=== PATIENT | female | born 1980 | race Caucasian/White ===

== ENCOUNTER 2017-10-06 17:54 | Inpatient (IN) | payer MEDICARE, OTHER ==
[2017-10-06 18:55] LABS: ADD MAN DIFF? NO
[2017-10-06] MEDS: IV NORMAL SALINE 1000ML BAG 1,000 ML IV ×2 (18:56→22:44)
[2017-10-06 19:00] LABS: BASO # 0.1 x10^3/uL (0.0-0.2); BASO % 1 % (0-3); EOS # 0.2 x10^3/uL (0.0-0.7); EOS % 1 % (0-3); HEMATOCRIT 41.2 % (36.0-47.0); HEMOGLOBIN 13.2 g/dL (12.0-15.5); LYMPH # 4.3 x10^3/uL (1.0-4.8); LYMPH % 30 % (24-48); MEAN CORPUSCULAR HEMOGLOBIN 26 pg (25-35); MEAN CORPUSCULAR HGB CONC 32 g/dL (31-37); MEAN CORPUSCULAR VOLUME 80 fL (79-100); MONO # 0.6 x10^3/uL (0.0-1.1); MONO % 4 % (0-9); NEUT # 9.2 x10^3uL (1.8-7.7); NEUT % 64 % (31-73); PLATELET COUNT 371 x10^3/uL (140-400); RED BLOOD COUNT 5.13 x10^6/uL (3.50-5.40); RED CELL DISTRIBUTION WIDTH 15.8 % (11.5-14.5); WHITE BLOOD COUNT 14.4 x10^3/uL (4.0-11.0)
[2017-10-06 19:13] LABS: NEG OBC SER NEG; POS OBC SER POS; PREG TEST PT QUAL NEGATIVE (NEG)
[2017-10-06 19:14] LABS: ANION GAP 8 (6-14); BLOOD UREA NITROGEN 10 mg/dL (7-20); BUN/CREATININE RATIO 10 (6-20); CALCIUM 8.4 mg/dL (8.5-10.1); CARBON DIOXIDE 30 mmol/L (21-32); CHLORIDE 102 mmol/L (98-107); GFR 62.1; GLUCOSE 104 mg/dL (70-99); POTASSIUM 3.1 mmol/L (3.5-5.1); SODIUM 140 mmol/L (136-145)
[2017-10-06 19:18] LABS: ALBUMIN 3.3 g/dL (3.4-5.0); ALBUMIN/GLOBULIN RATIO 0.8 (1.0-1.7); ALK PHOS 112 U/L (46-116); ALT (SGPT) 21 U/L (14-59); AST (SGOT) 14 U/L (15-37); TOTAL BILIRUBIN 0.1 mg/dL (0.2-1.0); TOTAL PROTEIN 7.5 g/dL (6.4-8.2)
[2017-10-06 19:26] LABS: C-REACTIVE PROTEIN 9.1 mg/L (0-3.3)
[2017-10-06] MEDS ORDERED: fentaNYL PF VIAL 100 MCG/2 ML VIAL IV (19:45)
[2017-10-06] MEDS: IOHEXOL 300 MG/ML 100ML VIAL. IV (20:00)
[2017-10-06 20:21] LABS: BILIRUBIN,URINE NEGATIVE (NEG); COLOR,URINE YELLOW; GLUCOSE,URINE NEGATIVE (NEG); NITRITE,URINE NEGATIVE (NEG); PROTEIN,URINE NEGATIVE (NEG-TRACE); UROBILINOGEN,URINE 0.2 mg/dL (0.2 mg/dL)
[2017-10-06 20:27] LABS: CLARITY,URINE HAZY
[2017-10-06 20:30] LABS: BACTERIA,URINE MANY /HPF (0-FEW); RBC,URINE 0 /HPF (0-2); SQUAMOUS EPITHELIAL CELL,UR MANY /LPF; WBC,URINE OCC /HPF (0-4)
[2017-10-06] MEDS ORDERED: ONDANSETRON PF 4 MG/2 ML VIAL. IV (21:00)
[2017-10-06] MEDS ORDERED: MORPHINE SULFATE 2 MG/ML DISP.SYRIN. IV (21:00)
[2017-10-07 04:25] LABS: ADD MAN DIFF? NO
[2017-10-07 04:31] LABS: BASO # 0.1 x10^3/uL (0.0-0.2); BASO % 1 % (0-3); EOS # 0.2 x10^3/uL (0.0-0.7); EOS % 1 % (0-3); HEMATOCRIT 36.6 % (36.0-47.0); LYMPH # 4.2 x10^3/uL (1.0-4.8); LYMPH % 34 % (24-48); MEAN CORPUSCULAR HEMOGLOBIN 26 pg (25-35); MEAN CORPUSCULAR HGB CONC 33 g/dL (31-37); MEAN CORPUSCULAR VOLUME 80 fL (79-100); MONO # 0.8 x10^3/uL (0.0-1.1); MONO % 7 % (0-9); NEUT # 7.2 x10^3uL (1.8-7.7); NEUT % 57 % (31-73); PLATELET COUNT 293 x10^3/uL (140-400); RED CELL DISTRIBUTION WIDTH 15.7 % (11.5-14.5); WHITE BLOOD COUNT 12.5 x10^3/uL (4.0-11.0)
[2017-10-07 04:50] LABS: ANION GAP 6 (6-14); BLOOD UREA NITROGEN 9 mg/dL (7-20); CALCIUM 8.1 mg/dL (8.5-10.1); CARBON DIOXIDE 27 mmol/L (21-32); CHLORIDE 106 mmol/L (98-107); CREATININE 0.8 mg/dL (0.6-1.0); GFR 80.3; GLUCOSE 88 mg/dL (70-99); POTASSIUM 3.7 mmol/L (3.5-5.1); SODIUM 139 mmol/L (136-145)
[2017-10-07] MEDS: IV NORMAL SALINE 1000ML BAG 1,000 ML IV (05:04)
[2017-10-07] MEDS ORDERED: MORPHINE SULFATE 4 MG/ML DISP.SYRIN. IV (11:51)
[2017-10-07] MEDS ORDERED: IBUPROFEN 600 MG TABLET. PO (12:00)
[2017-10-07] MEDS: IV 1/2 NORMAL SALINE 1,000 ML IV ×2 (12:06→21:04)
[2017-10-07] MEDS: METOPROLOL SUCC 24HR ER 25 MG TAB.ER.24H. PO (12:30)
[2017-10-07] MEDS: PANTOPRAZOLE 40 MG TABLET.DR. PO (14:13)
[2017-10-07] MEDS: HYDROcodone/APAP 7.5/325MG 1 TAB TABLET PO ×2 (14:15→21:05)
[2017-10-07] MEDS: hydroCHLOROthiazide 25 MG TABLET PO (16:34)
[2017-10-07] MEDS: ATENOLOL 25 MG TABLET. PO (18:44)
[2017-10-07] MEDS: LACTOBACILLUS RHAMNOSUS GG 1 CAPSULE. PO (21:05)
[2017-10-08] MEDS: HYDROcodone/APAP 7.5/325MG 1 TAB TABLET PO (04:42)
[2017-10-08 04:55] LABS: ADD MAN DIFF? NO
[2017-10-08 05:02] LABS: BASO # 0.1 x10^3/uL (0.0-0.2); BASO % 1 % (0-3); EOS # 0.2 x10^3/uL (0.0-0.7); EOS % 2 % (0-3); HEMATOCRIT 36.1 % (36.0-47.0); HEMOGLOBIN 11.9 g/dL (12.0-15.5); LYMPH % 36 % (24-48); MEAN CORPUSCULAR HEMOGLOBIN 27 pg (25-35); MEAN CORPUSCULAR HGB CONC 33 g/dL (31-37); MEAN CORPUSCULAR VOLUME 81 fL (79-100); MONO # 0.7 x10^3/uL (0.0-1.1); MONO % 6 % (0-9); NEUT # 6.1 x10^3uL (1.8-7.7); NEUT % 55 % (31-73); PLATELET COUNT 295 x10^3/uL (140-400); RED BLOOD COUNT 4.47 x10^6/uL (3.50-5.40); RED CELL DISTRIBUTION WIDTH 15.7 % (11.5-14.5)
[2017-10-08 05:35] LABS: ANION GAP 6 (6-14); BLOOD UREA NITROGEN 7 mg/dL (7-20); CALCIUM 7.7 mg/dL (8.5-10.1); CARBON DIOXIDE 27 mmol/L (21-32); CHLORIDE 107 mmol/L (98-107); CREATININE 0.8 mg/dL (0.6-1.0); GFR 80.3; GLUCOSE 92 mg/dL (70-99); POTASSIUM 3.9 mmol/L (3.5-5.1); SODIUM 140 mmol/L (136-145)
[2017-10-08] MEDS ORDERED: DEXTROAMPHETAMINE PO (08:00)
[2017-10-08] MEDS ORDERED: AMPHETAMINE PO (08:00)
[2017-10-08] MEDS: IV 1/2 NORMAL SALINE 1,000 ML IV (08:30)
[2017-10-08] MEDS: PANTOPRAZOLE 40 MG TABLET.DR. PO (09:34)
[2017-10-08] MEDS: LACTOBACILLUS RHAMNOSUS GG 1 CAPSULE. PO (09:34)
== END 2017-10-08 12:50 | disposition home or self-care (01) | DRG 690 ==
LOC: ER 17:54 → 5 NORTH 21:00
DX: N10 Acute pyelonephritis (principal); F12.90 Cannabis use, unspecified, uncomplicated; F17.200 Nicotine dependence, unspecified, uncomplicated; F41.1 Generalized anxiety disorder; I10 Essential (primary) hypertension; J45.909 Unspecified asthma, uncomplicated; K21.9 Gastro-esophageal reflux disease without esophagitis; Z90.710 Acquired absence of both cervix and uterus; Z98.51 Tubal ligation status; Z87.440 Personal history of urinary (tract) infections; Z88.4 Allergy status to anesthetic agent; Z88.1 Allergy status to other antibiotic agents; Z88.0 Allergy status to penicillin; Z88.2 Allergy status to sulfonamides; Z88.8 Allergy status to other drugs, medicaments and biological substances
CPT/HCPCS: 36415; 74178; 80048; 80053; 81001; 84703; 85025; 86140; 87086; 96361; 96365; 99285; 99285-25; 99406; J1956; J7030; Q9967

== ENCOUNTER 2017-10-14 00:52 | Emergency (ER) | payer MEDICARE, OTHER ==
[2017-10-14 03:12] LABS: ADD MAN DIFF? NO
[2017-10-14 03:16] LABS: BASO # 0.2 x10^3/uL (0.0-0.2); BASO % 1 % (0-3); EOS # 0.2 x10^3/uL (0.0-0.7); EOS % 1 % (0-3); HEMATOCRIT 37.7 % (36.0-47.0); HEMOGLOBIN 12.3 g/dL (12.0-15.5); LYMPH # 4.9 x10^3/uL (1.0-4.8); LYMPH % 32 % (24-48); MEAN CORPUSCULAR HEMOGLOBIN 26 pg (25-35); MEAN CORPUSCULAR HGB CONC 33 g/dL (31-37); MEAN CORPUSCULAR VOLUME 81 fL (79-100); MONO # 0.8 x10^3/uL (0.0-1.1); MONO % 5 % (0-9); NEUT # 9.3 x10^3uL (1.8-7.7); NEUT % 61 % (31-73); PLATELET COUNT 307 x10^3/uL (140-400); RED BLOOD COUNT 4.67 x10^6/uL (3.50-5.40); RED CELL DISTRIBUTION WIDTH 16.1 % (11.5-14.5); WHITE BLOOD COUNT 15.3 x10^3/uL (4.0-11.0)
[2017-10-14] MEDS: IV NORMAL SALINE 1000ML BAG 1,000 ML IV (03:24)
[2017-10-14] MEDS: ONDANSETRON PF 4 MG/2 ML VIAL. IV (03:24)
[2017-10-14 03:25] LABS: ANION GAP 9 (6-14); BLOOD UREA NITROGEN 12 mg/dL (7-20); BUN/CREATININE RATIO 17 (6-20); CALCIUM 8.3 mg/dL (8.5-10.1); CARBON DIOXIDE 27 mmol/L (21-32); CHLORIDE 103 mmol/L (98-107); CREATININE 0.7 mg/dL (0.6-1.0); GFR 93.6; GLUCOSE 90 mg/dL (70-99); POTASSIUM 3.9 mmol/L (3.5-5.1); SODIUM 139 mmol/L (136-145)
[2017-10-14] MEDS: fentaNYL PF VIAL 100 MCG/2 ML VIAL IV (03:25)
[2017-10-14] MEDS: FAMOTIDINE 20 MG/2 ML VIAL IVP (03:25)
[2017-10-14 03:30] LABS: ALBUMIN 3.3 g/dL (3.4-5.0); ALBUMIN/GLOBULIN RATIO 0.8 (1.0-1.7); ALK PHOS 93 U/L (46-116); ALT (SGPT) 20 U/L (14-59); AST (SGOT) 15 U/L (15-37); LIPASE 146 U/L (73-393); TOTAL BILIRUBIN 0.2 mg/dL (0.2-1.0); TOTAL PROTEIN 7.2 g/dL (6.4-8.2)
[2017-10-14 04:48] LABS: BILIRUBIN,URINE NEGATIVE (NEG); CLARITY,URINE CLEAR; COLOR,URINE YELLOW; GLUCOSE,URINE NEGATIVE (NEG); NITRITE,URINE NEGATIVE (NEG); PH,URINE 5.5; PROTEIN,URINE NEGATIVE (NEG-TRACE); UROBILINOGEN,URINE 0.2 mg/dL (0.2 mg/dL)
[2017-10-14 05:04] LABS: BACTERIA,URINE 0 /HPF (0-FEW); RBC,URINE 0 /HPF (0-2); SQUAMOUS EPITHELIAL CELL,UR FEW /LPF; WBC,URINE OCC /HPF (0-4)
[2017-10-14] MEDS: metroNIDAZOLE 500 MG TABLET PO (05:48)
== END 2017-10-14 06:02 | disposition home or self-care (01) ==
LOC: ER 00:52
DX: E86.0 Dehydration (principal); Z98.51 Tubal ligation status; Z90.710 Acquired absence of both cervix and uterus; F12.10 Cannabis abuse, uncomplicated; Z88.0 Allergy status to penicillin; Z88.1 Allergy status to other antibiotic agents; Z88.5 Allergy status to narcotic agent
CPT/HCPCS: 36415; 80053; 81001; 83690; 85025; 96361; 96374; 96375; 99284-25; J2405; J3010; J7030; S0028

== ENCOUNTER 2018-05-26 07:32 | Observation (INO) | payer MEDICARE, OTHER ==
[2018-05-26] VITALS (7 sets, daily range): BP systolic 106–116; BP diastolic 54–63
[~2018-05-26] VITALS: Ht 170.2 cm; Wt 104.3 kg
[~2018-05-26 07:32] MED LIST: ALPR1TAB2 PO; ALPR2TAB2 PO; ATEN25TA PO; DEXT10CA10 PO; FLUC150T PO; HYDR-971 PO; HYDR12.58 PO; IV RINGERS,LACTATED 1000ML 1,000 ML IV SCH; LIDOCAINE 1% PF 2 ML VIAL. ID PRN; METR500T PO; MORPHINE SULFATE 2 MG/ML VIAL. IV PRN; ONDA4TAB10 SL; OXYC-323 PO; POTA10TA12 PO; PROCHLORPERAZINE 10 MG/2 ML VIAL. IV PRN; VENTOLIN HFA18 GM INH; fentaNYL PF VIAL 100 MCG/2 ML VIAL IV PRN
[2018-05-26] MEDS ORDERED: METHYLENE BLUE 1% 10 ML VIAL. ONE (07:46)
[2018-05-26] MEDS ORDERED: BUPIVAC MPF-EPI 0.5%-1:200000 30 ML VIAL. ONE (07:46)
[2018-05-26] MEDS ORDERED: BUPIVACAINE MPF 0.25% 30 ML VIAL. ONE (07:47)
[2018-05-26] MEDS ORDERED: LIDOCAINE 1%/EPI 1:100,000 20 ML VIAL. ONE (07:47)
[2018-05-26] MEDS ORDERED: ESTROGENS, CONJ VAGINAL CREAM 30GM TUBE. ONE (07:47)
[2018-05-26] MEDS ORDERED: SURGICEL HEMOSTAT 4X8 EACH. ONE (07:47)
[2018-05-26] MEDS ORDERED: CLINDAMYCIN 900MG PREMIX 50 ML IV PRN (08:00)
[2018-05-26] MEDS ORDERED: DEXL60CA2 PO (08:20)
[2018-05-26] MEDS ORDERED: PROAIR HFA8.5 GM INH (08:21)
[2018-05-26 08:23] LABS: BASO # 0.1 x10^3/uL (0.0-0.2); BASO % 1 % (0-3); EOS # 0.2 x10^3/uL (0.0-0.7); EOS % 2 % (0-3); HEMATOCRIT 39.3 % (36.0-47.0); LYMPH # 3.2 x10^3/uL (1.0-4.8); LYMPH % 28 % (24-48); MEAN CORPUSCULAR HEMOGLOBIN 26 pg (25-35); MEAN CORPUSCULAR HGB CONC 33 g/dL (31-37); MEAN CORPUSCULAR VOLUME 79 fL (79-100); MONO # 0.7 x10^3/uL (0.0-1.1); MONO % 6 % (0-9); NEUT # 7.3 x10^3uL (1.8-7.7); NEUT % 63 % (31-73); PLATELET COUNT 309 x10^3/uL (140-400); RED BLOOD COUNT 4.99 x10^6/uL (3.50-5.40); RED CELL DISTRIBUTION WIDTH 16.2 % (11.5-14.5); WHITE BLOOD COUNT 11.6 x10^3/uL (4.0-11.0)
[2018-05-26 08:25] LABS: CALCIUM 8.8 mg/dL (8.5-10.1); CREATININE 0.9 mg/dL (0.6-1.0); GFR 69.7; POTASSIUM 3.2 mmol/L (3.5-5.1)
[2018-05-26] MEDS ORDERED: ROCURONIUM 50 MG/5 ML VIAL. ONE (08:35)
[2018-05-26] MEDS ORDERED: fentaNYL PF VIAL 100 MCG/2 ML VIAL ONE ×2 (08:35→10:32)
[2018-05-26] MEDS ORDERED: MIDAZOLAM HCL/PF 2 MG/2 ML VIAL. ONE (08:35)
[2018-05-26] MEDS ORDERED: SCOPOLAMINE 1.5MG PATCH. TD ONE ×2 (08:50→09:00)
[2018-05-26] MEDS ORDERED: BUPIVACAINE-EPI 0.25%-1:200000 MPF 30 ML VIAL. INJ ONE (09:00)
[2018-05-26] MEDS ORDERED: PROPOFOL 20 ML IV ONE (09:06)
[2018-05-26] MEDS ORDERED: FAMOTIDINE 20 MG/2 ML VIAL ONE (09:06)
[2018-05-26] MEDS ORDERED: ONDANSETRON PF 4 MG/2 ML VIAL. ONE (09:06)
[2018-05-26] MEDS ORDERED: DEXAMETHASONE SOD PHOS 20 MG/5 ML VIAL. ONE (09:06)
[2018-05-26 09:33] LABS: U PREG PATIENT NEGATIVE (NEG)
[2018-05-26] MEDS ORDERED: NEOSTIGMINE METHYLSULFATE 5 MG/5 ML SYRINGE. ONE (10:28)
[2018-05-26] MEDS ORDERED: GLYCOPYRROLATE 1 MG/5 ML VIAL. ONE (10:28)
[2018-05-26] MEDS ORDERED: SEVOFLURANE > 120 MINUTES. IH ONE (10:52)
[2018-05-26] MEDS ORDERED: ONDANSETRON PF 4 MG/2 ML VIAL. IV PRN (11:45)
[2018-05-26] MEDS ORDERED: 0.9 % SODIUM CHLORIDE 10 ML DISP.SYRIN. IV PRN (11:45)
[2018-05-26] MEDS ORDERED: KETOROLAC 30 MG/ML VIAL. IV PRN (11:45)
[2018-05-26] MEDS ORDERED: PROCHLORPERAZINE 10 MG/2 ML VIAL. IV PRN (11:45)
[2018-05-26] MEDS ORDERED: SIMETHICONE 80 MG TAB.CHEW PO PRN (11:45)
[2018-05-26] MEDS ORDERED: CALCIUM CARBONATE 500 MG TAB.CHEW PO PRN (11:45)
[2018-05-26] MEDS ORDERED: ZOLPIDEM 5 MG TABLET. PO PRN (11:45)
[2018-05-26] MEDS ORDERED: DEXTROSE 50% 25 GM / 50ML DISP.SYRIN. IV PRN (11:45)
[2018-05-26] MEDS ORDERED: diphenhydrAMINE HCL 25 MG CAPSULE PO PRN (11:45)
--- NOTE | 2018-05-26 11:45 | PDOC ---
BRIEF OPERATIVE NOTE Date: May 26, 2018 Pre-Op Diagnosis 1. Menorrhagia 2. PMDD Post-Op Diagnosis Same + Cystotomy Procedure Performed 1. LAVH 2. Cystotomy Repair Surgeon Dr. Gibbs Anesthesia Type: General Blood Loss 300 ml Specimens Obtained cervix and uterus Findings enlarged uterus, nml Left fallopian tube and ovary Complications cystotomy Operative Note see dictation AMBERLY GIBBS Jr, MD May 26, 2018 11:45
[2018-05-26] MEDS: fentaNYL PF VIAL 100 MCG/2 ML VIAL IV PRN ×2 (12:04→12:40)
--- NOTE | 2018-05-26 12:17 | OP ---
DATE OF SURGERY: 05/26/2018 PREOPERATIVE DIAGNOSES: 1. Menorrhagia. 2. Premenstrual dysphoric disorder. POSTOPERATIVE DIAGNOSES: 1. Menorrhagia. 2. Premenstrual dysphoric disorder. 3. Cystotomy. PROCEDURE: 1. LAVH. 2. Cystotomy repair. SURGEON: Amberly Gibbs MD ANESTHESIA: GETA. ESTIMATED BLOOD LOSS: 300 mL. COMPLICATIONS: Cystotomy. FINDINGS: Enlarged uterus, normal left fallopian tube and normal left ovary. SUMMARY: A 38-year-old female who was counseled on risks, benefits and expectations of LAVH and voiced clear understanding to proceed. DESCRIPTION OF PROCEDURE: The patient was taken to surgery suite and prepped in normal fashion and draped in sterile fashion. After adequate anesthesia, Graves speculum was placed. Anterior lip of the cervix was grasped with single tooth tenaculum. The Valtchev uterine manipulator was then placed. The bivalve speculum was then removed. Attention was now placed on abdomen. A small transverse skin incision made just below the umbilicus with the scalpel. The Veress needle was then placed through the infraumbilical incision site. The abdomen was allowed to insufflate up to 1-1/2 liters CO2 gas. The Veress needle was then removed. A 5 mm trocar was placed. The camera was placed and positioned. The uterus was enlarged and the left fallopian tube and ovary appeared normal. Right fallopian tube and ovary had been removed in previous surgery. There was no evidence of endometriosis. There were some adhesions of the lower uterine segment to the bladder area. Two additional incisions made in the left lower quadrant in which 5 mm trocars were placed. With the aid of nonlocking graspers and EnSeal device, the right round ligament was coagulated and dissected. The right broad ligament was coagulated and dissected down to the uterine artery. The same process took place with left adnexa. Bladder flap was partially created using dissection with the EnSeal device as well as with blunt dissection and hydrodissection. We then proceeded vaginally. A weighted speculum and curved [place] placed vaginally. The Valtchev uterine manipulator and single tooth tenaculum were removed. Mustapha clamps were placed on the anterior and posterior lip of the cervix. Cervix was injected with 1% lidocaine with epinephrine in circumferential manner. Bovie cautery was utilized to circumscribe the cervix. The vaginal mucosa was dissected away from the lower uterine segment using a moist Ray-Magdaleno. Parametrial tissue was clamped bilaterally with curved Kadi clamps, cut and suture ligated with 2-0 Vicryl suture. The posterior cul-de-sac was then entered sharply using curved Castellanos scissors. The long weighted speculum was placed. Uterosacral ligaments were clamped bilaterally, cut, and suture ligated. The cardinal ligaments were clamped bilaterally, cut, and suture ligated. We entered the anterior cul-de-sac with blunt dissection. The uterus was then retroverted. Two additional pedicles were taken just adjacent to the uterus, clamped, cut and suture ligated. The cervix was also debulked using the coring method using the scalpel. Once the uterus and cervix were removed, the pedicles were visualized. There was a [id number] suture placed in the right aspect of the vaginal cuff near the uterosacral ligament for better hemostasis. At the time of review near the bladder area, it was notified that the bladder did have blood in the catheter, which the Scott catheter bag was removed and methylene blue was mixed with normal saline was injected in a retrograde fashion showing the bladder, which there was a cystotomy defect in the bladder. This cystotomy was repaired with 3-0 chromic suture in 2 layers in a running fashion. Retrograde filling of the bladder was performed, which indicated a good repair, cystoscopy was then performed. The cystoscope was placed, 30-degree scope in which the bladder was evaluated. There was no evidence of suture into the bladder. The ureterovesical junctions were functioning bilaterally. This was visualized. There was no further defect. The cystoscope was removed. A Scott catheter was placed. The urine was then clear at this time. The vaginal cuff was then reapproximated using a modified Ya's culdoplasty incorporating the uterosacral ligaments bilaterally and the remainder of the vaginal cuff was reapproximated using 2-0 Vicryl suture in [id number]-hj-[id number] manner. Moist vaginal packing was placed. The abdomen was once again insufflated with 1.5 liters CO2 gas. The scope was positioned. The vaginal cuff was visualized and hemostatic. Pedicles were all hemostatic. Suction irrigation was utilized to verify good hemostasis. Small amount of normal saline was left in posterior cul-de-sac. The trocars were then removed under direct visualization. The abdomen was allowed to deflate as much as possible. The three skin incisions were reapproximated using 4-0 Vicryl suture in subcuticular manner. A 0.25% Marcaine with epinephrine was injected at each incision site. The patient tolerated the procedure well and was taken to recovery room in stable condition. Sponge and needle count correct x 3. AMBERLY GIBBS MD DR: FRANCA/wei JOB#: [id number] / [id number]
[2018-05-26] MEDS ORDERED: GABAPENTIN 300 MG CAPSULE. PO SCH (22:00)
[2018-05-26] MEDS: oxyCODONE/APAP 5/325 1 TAB TABLET PO PRN (22:56)
[2018-05-27 05:20] LABS: BASO % 0 % (0-3); EOS % 0 % (0-3); HEMATOCRIT 34.8 % (36.0-47.0); HEMOGLOBIN 11.5 g/dL (12.0-15.5); LYMPH # 2.2 x10^3/uL (1.0-4.8); LYMPH % 13 % (24-48); MEAN CORPUSCULAR HEMOGLOBIN 26 pg (25-35); MEAN CORPUSCULAR HGB CONC 33 g/dL (31-37); MEAN CORPUSCULAR VOLUME 80 fL (79-100); MONO # 0.8 x10^3/uL (0.0-1.1); MONO % 5 % (0-9); NEUT # 14.2 x10^3uL (1.8-7.7); NEUT % 82 % (31-73); PLATELET COUNT 283 x10^3/uL (140-400); RED BLOOD COUNT 4.37 x10^6/uL (3.50-5.40); RED CELL DISTRIBUTION WIDTH 16.3 % (11.5-14.5); WHITE BLOOD COUNT 17.2 x10^3/uL (4.0-11.0)
[2018-05-27 06:10] VITALS: BP 105/63
[2018-05-27] MEDS: oxyCODONE/APAP 5/325 1 TAB TABLET PO PRN ×2 (06:15→13:07)
[2018-05-27] MEDS ORDERED: IBUPROFEN 400 MG TABLET. PO PRN (08:30)
[2018-05-27] MEDS: DOCUSATE SODIUM 100 MG CAPSULE. PO PRN ×2 (08:45→13:06)
[2018-05-27 08:52] LABS: % LYMPHS 14 % (24-48); % MONOS 4 % (0-10); % SEGS 82 % (35-66); PLT ESTIMATE ADEQUATE (ADEQUATE)
--- NOTE | 2018-05-27 12:29 | PDOC ---
SURGICAL PROGRESS NOTE Subjective Pt. feeling well. Pain controlled. Vital Signs Vital Signs Date Time Temp Pulse Resp B/P (MAP) Pulse Ox O2 Delivery O2 Flow Rate FiO2 05/27/18 06:15 96 Room Air 05/27/18 06:10 98.3 76 105/63 (77) 98.3 05/26/18 23:00 10.0 05/26/18 22:56 18 I&O Intake and Output 05/27/18 07:00 Intake Total 2950 ml Output Total 1505 ml Balance 1445 ml Intake Oral 800 ml IV Total 2150 ml Output Urine Total 1205 ml Estimated Blood Loss 300 ml PATIENT HAS A OROSCO: Yes General: Alert, Oriented X3, Cooperative HEENT: Atraumatic Lungs: Clear to auscultation Heart: Regular rate Abdomen: Normal bowel sounds, Soft, No tenderness, No masses Extremities: Normal pulses Neuro: Normal gait Psych/Mental Status: Mental status NL Labs Laboratory Tests Test 05/26/18 07:58 05/26/18 08:50 05/27/18 03:45 White Blood Count 11.6 x10^3/uL (4.0-11.0) 17.2 x10^3/uL (4.0-11.0) Red Blood Count 4.99 x10^6/uL (3.50-5.40) 4.37 x10^6/uL (3.50-5.40) Hemoglobin 13.0 g/dL (12.0-15.5) 11.5 g/dL (12.0-15.5) Hematocrit 39.3 % (36.0-47.0) 34.8 % (36.0-47.0) Mean Corpuscular Volume 79 fL (79-100) 80 fL (79-100) Mean Corpuscular Hemoglobin 26 pg (25-35) 26 pg (25-35) Mean Corpuscular Hemoglobin Concent 33 g/dL (31-37) 33 g/dL (31-37) Red Cell Distribution Width 16.2 % (11.5-14.5) 16.3 % (11.5-14.5) Platelet Count 309 x10^3/uL (140-400) 283 x10^3/uL (140-400) Neutrophils (%) (Auto) 63 % (31-73) 82 % (31-73) Lymphocytes (%) (Auto) 28 % (24-48) 13 % (24-48) Monocytes (%) (Auto) 6 % (0-9) 5 % (0-9) Eosinophils (%) (Auto) 2 % (0-3) 0 % (0-3) Basophils (%) (Auto) 1 % (0-3) 0 % (0-3) Neutrophils # (Auto) 7.3 x10^3uL (1.8-7.7) 14.2 x10^3uL (1.8-7.7) Lymphocytes # (Auto) 3.2 x10^3/uL (1.0-4.8) 2.2 x10^3/uL (1.0-4.8) Monocytes # (Auto) 0.7 x10^3/uL (0.0-1.1) 0.8 x10^3/uL (0.0-1.1) Eosinophils # (Auto) 0.2 x10^3/uL (0.0-0.7) 0.0 x10^3/uL (0.0-0.7) Basophils # (Auto) 0.1 x10^3/uL (0.0-0.2) 0.0 x10^3/uL (0.0-0.2) Sodium Level 142 mmol/L (136-145) Potassium Level 3.2 mmol/L (3.5-5.1) Chloride Level 104 mmol/L (98-107) Carbon Dioxide Level 28 mmol/L (21-32) Anion Gap 10 (6-14) Blood Urea Nitrogen 14 mg/dL (7-20) Creatinine 0.9 mg/dL (0.6-1.0) Estimated GFR (Cockcroft-Gault) 69.7 Glucose Level 106 mg/dL (70-99) Calcium Level 8.8 mg/dL (8.5-10.1) Urine Test Negative (NEG) Segmented Neutrophils % 82 % (35-66) Lymphocytes % 14 % (24-48) Monocytes % 4 % (0-10) Platelet Estimate Adequate (ADEQUATE) Laboratory Tests Test 05/27/18 03:45 White Blood Count 17.2 x10^3/uL (4.0-11.0) Red Blood Count 4.37 x10^6/uL (3.50-5.40) Hemoglobin 11.5 g/dL (12.0-15.5) Hematocrit 34.8 % (36.0-47.0) Mean Corpuscular Volume 80 fL (79-100) Mean Corpuscular Hemoglobin 26 pg (25-35) Mean Corpuscular Hemoglobin Concent 33 g/dL (31-37) Red Cell Distribution Width 16.3 % (11.5-14.5) Platelet Count 283 x10^3/uL (140-400) Neutrophils (%) (Auto) 82 % (31-73) Lymphocytes (%) (Auto) 13 % (24-48) Monocytes (%) (Auto) 5 % (0-9) Eosinophils (%) (Auto) 0 % (0-3) Basophils (%) (Auto) 0 % (0-3) Neutrophils # (Auto) 14.2 x10^3uL (1.8-7.7) Lymphocytes # (Auto) 2.2 x10^3/uL (1.0-4.8) Monocytes # (Auto) 0.8 x10^3/uL (0.0-1.1) Eosinophils # (Auto) 0.0 x10^3/uL (0.0-0.7) Basophils # (Auto) 0.0 x10^3/uL (0.0-0.2) Segmented Neutrophils % 82 % (35-66) Lymphocytes % 14 % (24-48) Monocytes % 4 % (0-10) Platelet Estimate Adequate (ADEQUATE) Assessment/Plan A: POD#1 s/p LAVH and Cystotomy repair P: D/c home. AMBERLY PINEDA Jr, MD May 27, 2018 12:29
--- NOTE | 2018-05-27 12:30 | DISCH ---
DISCHARGE INSTRUCTIONS Condition on Discharge Condition on Discharge: Stable Activity After Discharge Activity Instructions for Disc: Activity as tolerated Lifting Instructions after Dis: No heavy lifting Driving Instructions after Dis: No driving for 2 weeks Diet after Discharge Diet after Discharge: Regular Contacting the DRCristela after DC Call your doctor for: Concerns you may have Follow-Up Follow up with: Dr. Gibbs in 1 week. AMBERLY GIBBS Jr, MD May 27, 2018 12:30
[2018-05-27] MEDS ORDERED: HYDR-971 PO (12:33)
[2018-05-27] MEDS ORDERED: IBUP-1027 PO (12:33)
[2018-05-27] MEDS ORDERED: DOCU-109 PO (12:33)
[2018-05-27 14:01] VITALS: BP 102/63
--- NOTE | 2018-05-30 16:08 | PATHOLOGY ---
[facility] Accession Number: [id number] . 01 Material submitted: . UTERUS AND CERVIX . 01 Clinical history: . Post . 02 Diagnosis: Segments (2) of uterus, laparoscopic-assisted vaginal hysterectomy: - Chronic cervicitis with focal squamous metaplasia. - Nabothian cysts, cervix, multiple. - Secretory endometrium. - Adenomyosis, uterine corpus, focal (uterine weight 113 grams). . (JPM:alden; 05/30/2018) MBR/05/30/2018 . 02 Electronically signed: . John Dutta MD, Pathologist NPI- [id number] . 01 Gross description: . The specimen is received in formalin, labeled "Myla Moreno, uterus and cervix", are two segments measuring cervix to mid uterine corpus (8.0 x 5.5 x 3.0 cm) and mid uterine corpus to fundus (5.5 x 4.0 x 3.2 cm) collectively weighing 113 g. The ectocervix (3.5 x 3.0 cm) is stone-white with a 1.5 cm slit-like external os. The serosa is stone-pink and smooth. Sectioning of the cervix reveals multiple nabothian cysts the largest measuring 1.0 x 1.0 x 0.8 cm on the anterior aspect. The endocervical canal is lined by a stone-pink herringbone mucosa and measures 3.2 x 0.7 cm. The endometrial cavity is distorted and is lined by a stone-pink up to 0.1 cm endometrium. No discrete polyps or masses identified. The markedly trabeculated myometrium measures up to 1.8 cm and contains several possible chow-white nodules measuring up to 0.4 x 0.4 x 0.2 cm. The cut surface of the nodules is chow-white, whorled with no discrete hemorrhage or necrosis. 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 Anterior cervix A2. Posterior cervix A3-A4. Endometrium A5. Myometrium A6. Possible nodule (SWS; 05/26/2018) SHS/SHS . 02 Pathologist provided ICD-10: N72, N88.8, N80.0 . 02 CPT . 486317 Specimen Comment: A courtesy copy of this report has been sent to Specimen Comment: [phone], . Specimen Comment: Report sent to / DR SINGER Specimen Comment: A duplicate report has been generated due to demographic updates. Performed at: 01 [facility] [address] [facility] [address], [place] [id number] MD Caleb Lewis MD Phone: [phone] Performed at: 02 [facility] [address] [place], [place] [id number] MD John Dutta MD Phone: [phone]
[2018-06-18] MEDS ORDERED: LACT1CAP19 PO (13:26)
[2018-06-18] MEDS ORDERED: NITR100C62 PO (13:26)
[2018-06-18] MEDS ORDERED: Nicotine 21MG TD (13:26)
== END 2018-05-27 15:32 | disposition home or self-care (01) ==
LOC: SURG 07:32 → 3 NORTH 12:14
PROVIDERS: ADMIT Obstetrics & Gynecology; ATTEND Obstetrics & Gynecology
DX: N85.2 Hypertrophy of uterus (principal); N92.0 Excessive and frequent menstruation with regular cycle; F32.81 Premenstrual dysphoric disorder; Z23 Encounter for immunization
CPT/HCPCS: 36415; 58550; 80048; 81025; 85007; 85025; 88307; 90471; 90756; 96374; A7015; G0378; G0379; J0780; J1100; J1885; J2250; J2405; J2704; J2710; J3010; J3490; J7030; J7120; Q9968; S0028; Q2035

== ENCOUNTER 2018-06-02 00:12 | Emergency (ER) | payer MEDICARE, OTHER ==
[~2018-06-02] VITALS: Ht 170.2 cm; Wt 104.3 kg
[~2018-06-02 00:12] MED LIST changes: +DEXL60CA2 PO; +DOCU-109 PO; +IBUP-1027 PO; -IV RINGERS,LACTATED 1000ML 1,000 ML IV SCH; -LIDOCAINE 1% PF 2 ML VIAL. ID PRN; -MORPHINE SULFATE 2 MG/ML VIAL. IV PRN; +PROAIR HFA8.5 GM INH; -PROCHLORPERAZINE 10 MG/2 ML VIAL. IV PRN; -fentaNYL PF VIAL 100 MCG/2 ML VIAL IV PRN
[2018-06-02 01:40] VITALS: BP 101/50
[2018-06-02] MEDS ORDERED: cefTRIAXone IM 1 GM VIAL IM ONE (01:45)
[2018-06-02] MEDS ORDERED: HYDR-971 PO (01:49)
[2018-06-02] MEDS ORDERED: CLIN300C8 PO (01:50)
[2018-06-02] MEDS ORDERED: HYDROcodone/APAP 5/325MG 1 TAB TABLET PO ONE (02:00)
[2018-06-02] MEDS ORDERED: CLINDAMYCIN HCL 150 MG CAPSULE. PO ONE (02:00)
--- NOTE | 2018-06-02 02:12 | PHYS DOC ---
Past Medical History Past Medical History: Anxiety, Hepatitis, Kidney Infection, Other Additional Past Medical Histor: ARRHYTHMIA,TACHYCARDIA Past Surgical History: , Hysterectomy, Tubal ligation Additional Past Surgical Histo: RIGHT OVARY MASS REMOVED Alcohol Use: None Drug Use: Marijuana Adult General Chief Complaint Chief Complaint: POST-OP PROBLEM HPI HPI Patient is a 38 year old female who presents with vaginal pain and foreign body. The patient underwent hysterectomy on the th of this month. The operation was performed here at [facility]. The patient had been doing well postoperatively but developed vaginal pain and irritation over the last 2-3 days. She also complains of a very foul odor coming from the vaginal area. She does reportedly have some packing that was left in the vagina after the surgery. The patient does not have abdominal or pelvic pain. She does not have fever or chills. No nausea or vomiting. She was sent home with a Scott catheter in place and has been draining clear yellow urine. Review of Systems Review of Systems Constitutional: Denies fever or chills Eyes: Denies change in visual acuity HENT: Denies nasal congestion or sore throat Respiratory: Denies cough or shortness of breath Cardiovascular: No additional information not addressed in HPI GI: Denies abdominal pain, nausea, vomiting : Denies dysuria or hematuria Musculoskeletal: Denies back pain Integument: Denies rash or skin lesions Neurologic: Denies headache Endocrine: Denies polyuria All other systems were reviewed and found to be within normal limits, except as documented in this note. Current Medications Current Medications Current Medications Medications (Trade) Dose Ordered Sig/Miladys Start Time Stop Time Status Last Admin Dose Admin Acetaminophen/ Hydrocodone Bitart (Lortab 5/325) 2 tab 1X ONCE 06/02/18 02:00 06/02/18 02:01 DC Ceftriaxone Sodium (Rocephin Im) 1 gm 1X ONCE 06/02/18 01:45 06/02/18 01:46 DC Clindamycin HCl (Cleocin) 600 mg 1X ONCE 06/02/18 02:00 06/02/18 02:01 DC Allergies Allergies Allergies Coded Allergies Type Severity Reaction Last Updated Verified Penicillins Allergy Intermediate Rash 06/04/16 Yes erythromycin base Allergy Intermediate 06/04/16 Yes hydromorphone Allergy Intermediate Nausea and Vomiting 06/04/16 Yes propoxyphene Allergy Intermediate Nausea and Vomiting 10/20/16 Yes Physical Exam Physical Exam Constitutional: Well developed, well nourished, no acute distress, non-toxic appearance HENT: Normocephalic, atraumatic, bilateral external ears normal, oropharynx moist Eyes: PERRLA, EOMI, conjunctiva normal Neck: Normal range of motion, no tenderness Cardiovascular:Heart rate regular rhythm, no murmur Lungs & Thorax: Bilateral breath sounds clear to auscultation Abdomen: Bowel sounds normal, soft, no tenderness Skin: Warm, dry, no erythema, no rash Neurologic: Alert and oriented X 3 Psychologic: Affect normal External vaginal exam: There is a packing in place in the vagina with a blue string extruding from the vaginal os. The visible portion of the packing is purulent and heavily malodorous, smelling of infection. Scott catheter is in place and draining clear yellow urine. Visible portions of the vaginal mucosa are erythematous and inflamed in appearance. Current Patient Data Vital Signs Vital Signs Date Time Temp Pulse Resp B/P (MAP) Pulse Ox O2 Delivery O2 Flow Rate FiO2 06/02/18 00:18 97.8 68 16 113/70 (84) 97 Room Air 97.8 EKG EKG [] Radiology/Procedures Radiology/Procedures [] Course & Med Decision Making Course & Med Decision Making Pertinent Labs and Imaging studies reviewed. (See chart for details) Patient presents to the ER with vaginal pain and dryness. She also complained of severe odor coming from the vagina. I did review the operative records for this patient. There was a moist vaginal packing intentionally placed in the vagina. On exam, the patient continued to have the packing in place and the packing was obviously a source of infection and irritation to the vaginal wall. There was no discharge from the vagina on exam. The packing, although purulent, was very dry which is likely increasing the patient's discomfort and irritation. The packing was removed in the emergency department. This was exquisitely painful for the patient, but the packing removed easily. The full length of the packing was noted to be extraordinarily malodorous and purulent but primarily dry. Once removed, a gentle examination of the introitus of the vagina was performed. There was no overt discharge present. The patient declined internal pelvic examination as she already had scheduled follow-up with her OB physician tomorrow, about 12 hours from now. The patient had no systemic symptoms. She had no pelvic or abdominal pain. The portions of the exam which were completed in the ER seemed that the source of the irritation was primarily from the packing which was removed. The patient was given 1 g of Rocephin intramuscularly in the ER. She was also started on clindamycin by mouth. She was given a prescription for pain medications and continued clindamycin. She was advised to consult with her OB physician at the appointment tomorrow whether she should continue additional antibiotic therapy. The patient was not interested in admission or IV antibiotics this evening and she was nontoxic appearing with normal vital signs. She was discharged to home and was advised to come back to the ER for any new or systemic symptoms. Otherwise, keep her already scheduled appointment in the morning. Dragon Disclaimer Dragon Disclaimer This electronic medical record was generated, in whole or in part, using a voice recognition dictation system. Departure Departure Impression: Primary Impression: Vaginal pain Additional Impression: Vaginal vault infection Disposition: HOME, SELF-CARE Condition: IMPROVED Referrals: AMBERLY PINEDA Jr, MD Patient Instructions: Vaginal Foreign Body-Brief Scripts Clindamycin Hcl (CLINDAMYCIN HCL) 300 Mg Capsule 300 MG PO QID for 10 Days, #40 CAP Prov: MARIA LUISA OSBORNE DO 06/02/18 Hydrocodone/Apap 5-325 (NORCO 5-325 TABLET) 1 Each Tablet 1-2 EACH PO PRN Q6HRS PRN for SEVERE PAIN, #15 as needed for pain Prov: MARIA LUISA OSBORNE DO 06/02/18 Problem Qualifiers MARIA LUISA OSBORNE DO Jun 02, 2018 02:12
== END 2018-06-02 02:13 | disposition home or self-care (01) ==
LOC: ER 00:12
DX: N76.0 Acute vaginitis (principal); G89.18 Other acute postprocedural pain; R10.2 Pelvic and perineal pain; Z90.710 Acquired absence of both cervix and uterus; Z98.51 Tubal ligation status; Z88.0 Allergy status to penicillin; Z88.1 Allergy status to other antibiotic agents; Z88.5 Allergy status to narcotic agent; Z88.8 Allergy status to other drugs, medicaments and biological substances
CPT/HCPCS: 96372; 99283; J0696

== ENCOUNTER 2018-06-14 16:46 | Inpatient (IN) | payer MEDICARE, OTHER ==
[~2018-06-14] VITALS: Ht 170.2 cm; Wt 104.9 kg
[~2018-06-14 16:46] MED LIST changes: +CLIN300C8 PO
[2018-06-14 18:30] VITALS: BP 115/64
[2018-06-14] MEDS ORDERED: ALPRAZolam 0.5 MG TABLET PO PRN (18:30)
[2018-06-14] MEDS ORDERED: MEROPENEM 500 MG in IV NORMAL SALINE 50ML 50 ML IV ONE (19:00)
--- NOTE | 2018-06-14 19:12 | PDOC1 ---
History and Physical Date of Admission Date of Admission 06/14/18 Identification/Chief Complaint Chief Complaint pelvic pain Problems: (1) SIRS due to Gram-negative infection Source Source: Patient History of Present Illness History of Present Illness She was seen in the office last week and urine culture grew resistant E. coli and she is admitted for IV antibiotics and ID consult. She has continued to have severe pelvic pain and required oral narcotics for pain control. She recently had a hysterectomy but sustained a bladder injury and was discharged with some packing in her vagina which was left in place a few days and became odorous and removed but in the meantime she had become feverish. She finished a course of antibiotics without developing diarrhea despite having a history of C.diff. Past Medical History Cardiovascular: HTN, Other (SVT) Pulmonary: No pertinent hx GI: No pertinent hx Heme/Onc: No pertinent hx Hepatobiliary: No pertinent hx Psych: Anxiety Rheumatologic: No pertinent hx Infectious disease: Other (hx of c.diff) ENT: No pertinent hx Renal/: Other (recent bladder injury during hysterectomy) Dermatology: No pertinent hx Past Surgical History Past Surgical History: Hysterectomy Family History Family History: Hypertension Social History ALCOHOL: rare Drugs: None Current Medications Current Medications Current Medications Medications (Trade) Dose Ordered Sig/Miladys Start Time Stop Time Status Last Admin Dose Admin Acetaminophen/ Hydrocodone Bitart (Lortab 5/325) 1 tab PRN Q4HRS PRN 06/14/18 18:30 Alprazolam (Xanax) 0.5 mg QID PRN 06/14/18 18:30 Meropenem 500 mg/ Sodium Chloride 50 ml @ 100 mls/hr 1X ONCE 06/14/18 19:00 06/14/18 19:29 Metoprolol Tartrate (Lopressor) 50 mg BID 06/14/18 21:00 Nitrofurantoin Macrocrystals (Macrobid) 100 mg BID 06/14/18 21:00 UNV Allergies Allergies Allergies Coded Allergies Type Severity Reaction Last Updated Verified Penicillins Allergy Intermediate Rash 06/04/16 Yes erythromycin base Allergy Intermediate 06/04/16 Yes hydromorphone Allergy Intermediate Nausea and Vomiting 06/04/16 Yes propoxyphene Allergy Intermediate Nausea and Vomiting 06/04/16 Yes ROS Review of System CONSTITUTIONAL: + fever or chills EYES: No recent changes SKIN: healing laparoscopic abdominal incisions CARDIOVASCULAR: No chest pain, syncope, palpitations, or edema RESPIRATORY: No SOB or cough GASTROINTESTINAL: No nausea, vomiting or abdominal pain NEUROLOGICAL: No headaches or weakness ENDOCRINE: No cold or heat intolerance GENITOURINARY: straining with urination, suprapubic pain MUSCULOSKELETAL: + back pain, no joint pain LYMPHATICS: No enlarged lymph nodes PSYCHIATRIC: + anxiety, bipolar depression Physical Exam Physical Exam GEN.: No apparent distress. Alert and oriented. HEENT: Head is normocephalic, atraumatic NECK: Supple. LUNGS: Clear to auscultation. HEART: RRR, S1, S2 present. Peripheral pulses intact ABDOMEN: Soft, suprapubic tenderness, no peritoneal signs. Positive bowel sounds. EXTREMITIES: Without any cyanosis. NEUROLOGIC: Normal speech, normal tone PSYCHIATRIC: Normal affect, somewhat manic mood. SKIN: No ulcerations Vitals Vitals afebrile Labs Labs from [facility]: WBC 17K E.coli S to Amikacin, Meropenem, Tigecycline VTE Prophylaxis Ordered VTE Prophylaxis Devices: No VTE Pharmacological Prophylaxi: Yes Assessment/Plan Assessment/Plan resistant E.coli UTI with SIRS - IV antbiotics and ID consult recent lap hyst with bladder injury prolonged placement of intravaginal post op packing hx of C. diff - lactobacillus Jared SINGER MD Jun 14, 2018 19:12
[2018-06-14] MEDS: ENOXAPARIN 40 MG/0.4 ML SYRINGE. SQ SCH (19:15)
[2018-06-14] MEDS ORDERED: ONDANSETRON ODT 4 MG TAB.RAPDIS. PO PRN (19:15)
[2018-06-14] MEDS ORDERED: NON FORMULARY ITEM (Albuterol Sulfate (Proair Hfa Inhaler) 2 PUFF) INH PRN (19:15)
[2018-06-14] MEDS ORDERED: ALBUTEROL SULFATE 2.5 MG/3 ML NEBU. NEB PRN (19:30)
[2018-06-14 20:10] LABS: BASO % 0 % (0-3); EOS # 0.2 x10^3/uL (0.0-0.7); EOS % 1 % (0-3); HEMATOCRIT 34.2 % (36.0-47.0); HEMOGLOBIN 11.4 g/dL (12.0-15.5); LYMPH % 32 % (24-48); MEAN CORPUSCULAR HEMOGLOBIN 27 pg (25-35); MEAN CORPUSCULAR HGB CONC 34 g/dL (31-37); MEAN CORPUSCULAR VOLUME 79 fL (79-100); MONO # 0.7 x10^3/uL (0.0-1.1); MONO % 6 % (0-9); NEUT # 7.6 x10^3uL (1.8-7.7); NEUT % 61 % (31-73); PLATELET COUNT 404 x10^3/uL (140-400); RED BLOOD COUNT 4.31 x10^6/uL (3.50-5.40); RED CELL DISTRIBUTION WIDTH 15.5 % (11.5-14.5); WHITE BLOOD COUNT 12.5 x10^3/uL (4.0-11.0)
[2018-06-14 20:32] LABS: ALBUMIN/GLOBULIN RATIO 0.8 (1.0-1.7); CALCIUM 8.6 mg/dL (8.5-10.1); CREATININE 1.1 mg/dL (0.6-1.0); GFR 55.3; TOTAL BILIRUBIN 0.2 mg/dL (0.2-1.0); TOTAL PROTEIN 6.7 g/dL (6.4-8.2)
[2018-06-14] MEDS ORDERED: NITROFURANTOIN MONOHYD/M-CRYST 100 MG CAPSULE. PO SCH (21:00)
[2018-06-14] MEDS ORDERED: METOPROLOL TART IMMED RELEASE 50 MG TABLET. PO SCH (21:00)
[2018-06-14] MEDS: LACTOBACILLUS RHAMNOSUS GG 1 CAPSULE. PO SCH (21:53)
[2018-06-14] MEDS: HYDROcodone/APAP 5/325MG 1 TAB TABLET PO PRN (22:58)
[2018-06-14 23:41] VITALS: BP 102/52
[2018-06-15] MEDS: MEROPENEM 500 MG in IV NORMAL SALINE 50ML 50 ML IV SCH ×5 (01:12→23:05)
[2018-06-15 03:34] VITALS: BP 90/40
[2018-06-15 07:20] VITALS: BP 96/47
[2018-06-15] MEDS: LACTOBACILLUS RHAMNOSUS GG 1 CAPSULE. PO SCH ×2 (07:45→20:33)
[2018-06-15] MEDS: PANTOPRAZOLE 40 MG TABLET.DR. PO SCH (07:45)
[2018-06-15] MEDS: HYDROcodone/APAP 5/325MG 1 TAB TABLET PO PRN ×2 (07:46→17:56)
--- NOTE | 2018-06-15 14:20 | PDOC ---
PROGRESS NOTES Subjective He bladder pain is better, tolerating IV antibiotics Objective General: NAD Heart: RRR Lungs: CTA Abd: soft, suprapubic tenderness Ext: no C/C/E Back: no CVA tenderness WBC: 12.5 Vital Signs Vital Signs Date Time Temp Pulse Resp B/P (MAP) Pulse Ox O2 Delivery O2 Flow Rate FiO2 06/15/18 08:46 98 Room Air 06/15/18 07:20 98.0 80 19 96/47 (63) 98.0 I & O Intake and Output 06/15/18 07:00 Intake Total 320 ml Balance 320 ml Intake Oral 320 ml # Voids 8 Assessment and Plan Resistant E. Coli UTI with SIRS - continue IV antibiotics, outpatient urine culture from [facility] on chart, ID following Jared SINGER MD Jun 15, 2018 14:20
[2018-06-15 15:10] VITALS: BP 98/52
[2018-06-15] MEDS: ATENOLOL 25 MG TABLET. PO SCH ×2 (17:00→17:57)
--- NOTE | 2018-06-15 17:39 | CONS ---
DATE OF CONSULTATION: 06/15/2018 REFERRING PHYSICIAN: Dr. Murillo. REASON FOR CONSULTATION: Multidrug resistant E. coli UTI. HISTORY OF PRESENT ILLNESS: A 38-year-old female with a history of recent laparoscopic hysterectomy with cystostomy, which was sutured intraoperatively. After undergoing cystoscopy, was discharged with some packing in her vagina, which was left in place for a few days that became odorous. The patient started having fevers and chills. She also had foul smelling urine. Initially, had some discomfort while emptying the bladder. She was given empiric Levaquin as she had leukocytosis with white count of 17,000. UA showed pyuria. Urine culture was later reported with multidrug resistant E. coli with sensitivities to piperacillin, nitrofurantoin, but resistance to ampicillin, sulbactam, ceftazidime, cefotaxime and sensitive to meropenem and tigecycline, so the patient was admitted after undergoing blood cultures and urine cultures, was started on meropenem and nitrofurantoin. ID consult has been requested for antibiotic management. This morning, the patient says she still has pain while passing urine. Urine is still foul odor. Fever has improved. She had leukocytosis on admission with white count of 12K. She denies any nausea, vomiting, diarrhea, abdominal pain, though she does have some lower abdominal discomfort. Denies any pedal swelling, rash, headache, joint pain, back pain, flank pain. Denies any hematuria or dysuria. PAST MEDICAL HISTORY: Hypertension, SVT, anxiety, history of C. diff, recent bladder injury during hysterectomy. PAST SURGICAL HISTORY: Laparoscopic hysterectomy recently with cystostomy repaired. FAMILY HISTORY: As per HPI. SOCIAL HISTORY: Denies smoking, ETOH rare. No drugs. 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 CURRENT MEDICATIONS: Meropenem, metoprolol, acetaminophen, alprazolam. ALLERGIES: PENICILLIN, RASH; ERYTHROMYCIN, NOT WORKING SHE TOOK IT FOR 9 MONTHS FOR DENTAL ISSUES IN THE PAST; HYDROMORPHONE AND PROPOXYPHENE. REVIEW OF SYSTEMS: Negative except for above. PHYSICAL EXAMINATION: VITAL SIGNS: Temperature 98, pulse 80, respiratory rate 19, blood pressure 96/47, oxygen saturation 98% on room air. GENERAL: Alert, oriented x 3 female in no acute distress, lying comfortably in bed, cooperative, pleasant. HEENT: Normocephalic, atraumatic, anicteric. No thrush. NECK: Supple. LUNGS: Clear to auscultation. HEART: S1, S2. No gallops or murmurs. ABDOMEN: Soft. Mild suprapubic tenderness present. No rebound, no guarding. Previous laparoscopic scar well healed. EXTREMITIES: No edema, no cyanosis. NEUROLOGIC: Alert and oriented x 3. Grossly nonfocal. PSYCHIATRIC: Cooperative, appropriate mood and affect. DERMATOLOGIC: No generalized rash, warm, dry. LABORATORY DATA: WBC 12.5, hemoglobin 11.4, hematocrit 34.2, platelets 404. Previous white count was 17K on 06/06 and platelets of 383. Blood cultures negative from 06/06/2018. Urine culture positive for multidrug resistant E. coli as above. IMAGING: Pelvic ultrasound done on 04/22/2018 shows surgical absence of left ovary. Small nabothian cyst in the cervix. The pelvic ultrasound is otherwise negative. Abdomen and pelvis CT from 09/2017 showed no evidence of nephroureterolithiasis or obstructive uropathy, renal cortical lobulation or due to scarring, 2.7 cm left ovarian cyst and multiple prominent left ovarian follicles and small hypodense lesions in the liver, too small to characterize in the absence of known malignancy, or hemangiomas. IMPRESSION: 1. Multidrug resistant Escherichia coli, likely extended-spectrum beta-lactamases per susceptibilities from 06/12/2018 with resistance to ceftazidime, cefotaxime, ampicillin and sulbactam, sensitive to meropenem, tigecycline and amikacin from [facility] report seen attached to the medical records. 2. Recent laparoscopic hysterectomy with bladder injury. 3. Prolonged placement of intravaginal postop packing. 4. History of Clostridium difficile, stable at this time. RECOMMENDATIONS: 1. Continue empiric meropenem. 2. Follow up labs in the a.m. and cultures. 3. Monitor closely for diarrhea as the patient has history of C. diff in the past. 4. Continue lactobacillus. 5. Continue supportive care. Thank you, Dr. Murillo, for consulting Infectious Disease to participate in this patient's care. If you have any questions, do not hesitate to contact me. JIN WRIGHT MD DR: [email or web address]/wei JOB#: [id number] / [id number]
[2018-06-15] MEDS: ENOXAPARIN 40 MG/0.4 ML SYRINGE. SQ SCH (19:15)
[2018-06-15 19:25] VITALS: BP 100/57
[2018-06-15 23:15] VITALS: BP 107/55
[2018-06-16 03:05] VITALS: BP 97/39
[2018-06-16] MEDS: MEROPENEM 500 MG in IV NORMAL SALINE 50ML 50 ML IV SCH ×4 (05:56→23:58)
[2018-06-16] MEDS: PANTOPRAZOLE 40 MG TABLET.DR. PO SCH (05:56)
[2018-06-16 07:25] VITALS: BP 91/32
--- NOTE | 2018-06-16 08:54 | PDOC ---
PROGRESS NOTES Subjective She felt feverish last night and soaked sheets but temp not taken, up and showerede this am and feels a lot better overall Objective Afebrile General: NAD, Up & about, showered Heart: RRR Lungs: CTA Abd: soft, ND, no CVA tenderness Ext: no C/C/E Vital Signs Vital Signs Date Time Temp Pulse Resp B/P (MAP) Pulse Ox O2 Delivery O2 Flow Rate FiO2 06/16/18 07:54 Room Air 06/16/18 07:25 97.9 67 17 91/32 (51) 98 97.9 I & O Intake and Output 06/16/18 07:00 Intake Total 1640 ml Output Total 1000 ml Balance 640 ml Intake Oral 1640 ml Output Urine Total 1000 ml # Voids 9 Assessment and Plan resistant E.coli UTI with SIRS - cont IV antibiotics recent lap hyst with bladder injury - no blood in urine prolonged placement of intravaginal post op packing hx of C. diff - lactobacillus hx of SVT - atenolol held due to low BP Jared SINGER MD Jun 16, 2018 08:54
[2018-06-16 11:15] VITALS: BP 95/34
[2018-06-16] MEDS: LACTOBACILLUS RHAMNOSUS GG 1 CAPSULE. PO SCH ×2 (12:49→21:19)
[2018-06-16 15:20] VITALS: BP 98/47
[2018-06-16] MEDS: ATENOLOL 25 MG TABLET. PO SCH (16:59)
--- NOTE | 2018-06-16 17:47 | PDOC ---
Infectious Disease Note Subjective Subjective PIV infiltrated earlier s/p replacement Feeling alright, some mild lower abdominal pain Denies F/C/aches/N/V/D ROS ROS per HPI otherwise neg Vital Sign Vital Signs Vital Signs Date Time Temp Pulse Resp B/P (MAP) Pulse Ox O2 Delivery O2 Flow Rate FiO2 06/16/18 16:59 71 98/47 06/16/18 15:20 97.8 18 98 Room Air 97.8 Physical Exam PHYSICAL EXAM GENERAL: Alert, watching TV, conversant HEENT: Oral cavity clear NECK: Supple. LUNGS: Clear to auscultation. HEART: S1, S2. No gallops or murmurs. ABDOMEN: Soft. Suprapubic area tender EXTREMITIES: No edema, no cyanosis. NEUROLOGIC: Alert and oriented x 3. Grossly nonfocal. SKIN: without rash PIV ok Objective Assessment MDR Escherichia coli, likely ESBL per susceptibilities from 06/12/2018 ( Sensitive to Zosyn, NFT, meropenem, amikacin & tigecycline) Leukocytosis Recent laparoscopic hysterectomy with bladder injury on May 26 Prolonged placement of intravaginal postop packing. History of Clostridium difficile, stable at this time. Plan Plan of Care Continue meropenem Repeat CBC/BMP in am CT pelvis given recent surgery and discomfort BC neg so far D/w MARSHA FONG APRN Jun 16, 2018 17:47 IZA ALBERTS MD Jun 16, 2018 17:52
[2018-06-16] MEDS: ENOXAPARIN 40 MG/0.4 ML SYRINGE. SQ SCH (19:15)
[2018-06-16 19:50] VITALS: BP 96/51
[2018-06-16 23:21] VITALS: BP 95/52
[2018-06-16] MEDS: HYDROcodone/APAP 5/325MG 1 TAB TABLET PO PRN (23:58)
[2018-06-16] MEDS: NICOTINE 21MG PATCH. TD SCH (23:58)
[2018-06-17 03:30] VITALS: BP 96/40
[2018-06-17] MEDS: MEROPENEM 500 MG in IV NORMAL SALINE 50ML 50 ML IV SCH ×4 (05:52→22:22)
[2018-06-17 07:05] VITALS: BP 109/59
[2018-06-17] MEDS: LACTOBACILLUS RHAMNOSUS GG 1 CAPSULE. PO SCH ×3 (07:15→22:22)
[2018-06-17] MEDS: PANTOPRAZOLE 40 MG TABLET.DR. PO SCH ×2 (07:15→08:32)
[2018-06-17] MEDS ORDERED: IOHEXOL 300 MG/ML 100ML VIAL. IV ONE (07:45)
[2018-06-17] MEDS ORDERED: CONTRAST GIVEN. MC PRN (07:45)
--- NOTE | 2018-06-17 07:53 | RAD ---
CT of the pelvis with contrast, 06/17/2018: HISTORY: Postop hysterectomy, pelvic discomfort Multidetector CT imaging was performed following an IV bolus injection of iodinated contrast material. No oral contrast material was administered. The uterus is surgically absent. A small left pelvic mass appears to represent a remaining ovary containing small cysts. There is minimal streaky increased density in the pelvic fat near the vaginal apex compatible with minimal postoperative inflammation/scarring. No discrete fluid collection is seen to suggest abscess. There is bladder wall thickening, best seen along its superior aspect. The bowel loops are unremarkable. No free fluid or free air is evident in the pelvis. No iliac or inguinal adenopathy is evident. IMPRESSION: 1. Mild postsurgical change at the vaginal apex without evidence of a discrete fluid collection. 2. Mild bladder wall thickening, most prominent superiorly. This may reflect cystitis or postsurgical change in this patient with a history of bladder injury during surgery. PQRS Compliance Statement: One or more of the following individualized dose reduction techniques were utilized for this examination: 1. Automated exposure control 2. Adjustment of the mA and/or kV according to patient size 3. Use of iterative reconstruction technique Electronically signed by: Camilo Woodward MD (06/17/2018 7:50 AM) [facility]
[2018-06-17] MEDS: NICOTINE 21MG PATCH. TD SCH (08:33)
[2018-06-17 09:14] LABS: BASO % 0 % (0-3); EOS # 0.1 x10^3/uL (0.0-0.7); EOS % 2 % (0-3); HEMATOCRIT 37.6 % (36.0-47.0); HEMOGLOBIN 12.2 g/dL (12.0-15.5); LYMPH # 2.9 x10^3/uL (1.0-4.8); LYMPH % 31 % (24-48); MEAN CORPUSCULAR HEMOGLOBIN 26 pg (25-35); MEAN CORPUSCULAR HGB CONC 33 g/dL (31-37); MEAN CORPUSCULAR VOLUME 80 fL (79-100); MONO # 0.6 x10^3/uL (0.0-1.1); MONO % 7 % (0-9); NEUT # 5.7 x10^3uL (1.8-7.7); NEUT % 61 % (31-73); PLATELET COUNT 392 x10^3/uL (140-400); RED BLOOD COUNT 4.71 x10^6/uL (3.50-5.40); RED CELL DISTRIBUTION WIDTH 15.9 % (11.5-14.5); WHITE BLOOD COUNT 9.4 x10^3/uL (4.0-11.0)
[2018-06-17 09:31] LABS: CALCIUM 8.6 mg/dL (8.5-10.1); CREATININE 0.8 mg/dL (0.6-1.0); GFR 79.9; POTASSIUM 4.1 mmol/L (3.5-5.1)
[2018-06-17] MEDS: ATENOLOL 25 MG TABLET. PO SCH (10:06)
[2018-06-17] MEDS: ENOXAPARIN 40 MG/0.4 ML SYRINGE. SQ SCH (10:06)
--- NOTE | 2018-06-17 10:26 | PDOC ---
Infectious Disease Note Subjective Subjective Comfortable, ate a good breakfast Abdominal pain controlled No F/C/N/V/D ROS ROS per HPI otherwise neg Vital Sign Vital Signs Vital Signs Date Time Temp Pulse Resp B/P (MAP) Pulse Ox O2 Delivery O2 Flow Rate FiO2 06/17/18 07:43 Room Air 06/17/18 07:05 98.3 76 18 109/59 (76) 95 98.3 Physical Exam PHYSICAL EXAM GENERAL: Alert, watching TV HEENT: Oral cavity clear NECK: Supple. LUNGS: Clear to auscultation. HEART: S1, S2. No gallops or murmurs. ABDOMEN: Soft. Mild suprapubic area tender EXTREMITIES: No edema, no cyanosis. NEUROLOGIC: Alert and oriented x 3. Grossly nonfocal. SKIN: without rash PIV Labs Lab Laboratory Tests Test 06/17/18 08:50 White Blood Count 9.4 x10^3/uL (4.0-11.0) Red Blood Count 4.71 x10^6/uL (3.50-5.40) Hemoglobin 12.2 g/dL (12.0-15.5) Hematocrit 37.6 % (36.0-47.0) Mean Corpuscular Volume 80 fL (79-100) Mean Corpuscular Hemoglobin 26 pg (25-35) Mean Corpuscular Hemoglobin Concent 33 g/dL (31-37) Red Cell Distribution Width 15.9 % (11.5-14.5) Platelet Count 392 x10^3/uL (140-400) Neutrophils (%) (Auto) 61 % (31-73) Lymphocytes (%) (Auto) 31 % (24-48) Monocytes (%) (Auto) 7 % (0-9) Eosinophils (%) (Auto) 2 % (0-3) Basophils (%) (Auto) 0 % (0-3) Neutrophils # (Auto) 5.7 x10^3uL (1.8-7.7) Lymphocytes # (Auto) 2.9 x10^3/uL (1.0-4.8) Monocytes # (Auto) 0.6 x10^3/uL (0.0-1.1) Eosinophils # (Auto) 0.1 x10^3/uL (0.0-0.7) Basophils # (Auto) 0.0 x10^3/uL (0.0-0.2) Sodium Level 140 mmol/L (136-145) Potassium Level 4.1 mmol/L (3.5-5.1) Chloride Level 104 mmol/L (98-107) Carbon Dioxide Level 27 mmol/L (21-32) Anion Gap 9 (6-14) Blood Urea Nitrogen 13 mg/dL (7-20) Creatinine 0.8 mg/dL (0.6-1.0) Estimated GFR (Cockcroft-Gault) 79.9 Glucose Level 94 mg/dL (70-99) Calcium Level 8.6 mg/dL (8.5-10.1) Pelvic CT 1. Mild postsurgical change at the vaginal apex without evidence of a discrete fluid collection. 2. Mild bladder wall thickening, most prominent superiorly. This may reflect cystitis or postsurgical change in this patient with a history of bladder injury during surgery. Micro CT scan IMPRESSION: 1. Mild postsurgical change at the vaginal apex without evidence of a discrete fluid collection. 2. Mild bladder wall thickening, most prominent superiorly. This may reflect cystitis or postsurgical change in this patient with a history of bladder injury during surgery. 06/14. URINE CULTURE RES 1 Final No growth Objective Assessment MDR Escherichia coli, likely ESBL per susceptibilities from 06/12/2018 ( Sensitive to Zosyn, NFT, meropenem, amikacin & tigecycline) Leukocytosis - improved Recent laparoscopic hysterectomy with bladder injury on May 26. Pelvic CT: post-op changes; no abscess/fluid collection noted Prolonged placement of intravaginal postop packing. History of Clostridium difficile, stable at this time. Plan Plan of Care Continue meropenem (06/15) for now - may change to po in next day or so Probiotics Supportive care Attending Co-Sign Attending Co-Sign The patient was seen and interviewed as well as examined at the bedside. The chart was reviewed. The case was discussed. Agree with the plan of care. MARSHA NEAL APRN Jun 17, 2018 10:26 IZA ALBERTS MD Jun 17, 2018 15:14
[2018-06-17 11:06] VITALS: BP 110/63
[2018-06-17 15:24] VITALS: BP 102/59
--- NOTE | 2018-06-17 17:34 | PDOC ---
PROGRESS NOTES Subjective She is chilled from the room being cold and just finishing some ice cream. No fever. Up and about. No sign of abscess per imaging, consistent with cystitis Objective Afebrile General: NAD Heart: RRR Lungs: Clear Abd: soft, mildly tender Ext: no edema Vital Signs Vital Signs Date Time Temp Pulse Resp B/P (MAP) Pulse Ox O2 Delivery O2 Flow Rate FiO2 06/17/18 15:24 97.5 64 17 102/59 (73) 100 Room Air 97.5 I & O Intake and Output 06/17/18 07:00 Intake Total 2180 ml Balance 2180 ml Intake Oral 2180 ml # Voids 9 Assessment and Plan resistant E.coli UTI with SIRS - cont IV antibiotics - Urine cx from after admit is negative recent lap hyst with bladder injury - no abscess per imaging prolonged placement of intravaginal post op packing hx of C. diff - on lactobacillus, no diarrhea hx of SVT - atenolol is home med Jared SINGER MD Jun 17, 2018 17:34
[2018-06-17 19:48] VITALS: BP 114/48
[2018-06-17] MEDS: HYDROcodone/APAP 5/325MG 1 TAB TABLET PO PRN (23:10)
[2018-06-17 23:51] VITALS: BP 95/47
[2018-06-18 03:46] VITALS: BP 90/42
[2018-06-18] MEDS: MEROPENEM 500 MG in IV NORMAL SALINE 50ML 50 ML IV SCH (06:12)
[2018-06-18 07:00] VITALS: BP 95/37
[2018-06-18] MEDS: NICOTINE 21MG PATCH. TD SCH (09:00)
[2018-06-18] MEDS: PANTOPRAZOLE 40 MG TABLET.DR. PO SCH (09:52)
[2018-06-18] MEDS: LACTOBACILLUS RHAMNOSUS GG 1 CAPSULE. PO SCH (09:52)
--- NOTE | 2018-06-18 10:50 | PDOC ---
Infectious Disease Note Subjective Subjective Kids came up last night, watched movies late into the night + urinary incontinence with activity Pain controlled Denies N/V/D/F/C Eating yogurt and taking probiotics ROS ROS per HI otherwise neg Vital Sign Vital Signs Vital Signs Date Time Temp Pulse Resp B/P (MAP) Pulse Ox O2 Delivery O2 Flow Rate FiO2 06/18/18 07:00 97.7 80 14 95/37 (56) 97 Room Air 97.7 Physical Exam PHYSICAL EXAM GENERAL: Sleeping HEENT: Oral cavity clear NECK: Supple. LUNGS: Clear to auscultation. HEART: S1, S2. ABDOMEN: Soft. NT light palpation EXTREMITIES: No edema, no cyanosis. NEUROLOGIC: Arouses easily to name, responds appropriately SKIN: without rash Labs Micro 06/14. URINE CULTURE RES 1 Final No growth Objective Assessment MDR Escherichia coli, likely ESBL per susceptibilities from 06/12/2018 ( Sensitive to Zosyn, NFT, meropenem, amikacin & tigecycline) Leukocytosis - improved Recent laparoscopic hysterectomy with bladder injury on May 26. Pelvic CT: post-op changes; no abscess/fluid collection noted Prolonged placement of intravaginal postop packing. History of Clostridium difficile, stable at this time. Urinary incontinence Plan Plan of Care D/c meropenem (06/15) and dose Invanz times one - begin po Nitrofurantoin 06/19 for 6 days to complete a 10 day course of abx Probiotics/yogurt Kegel exercises Supportive care D/w Dr. Murillo Attending Co-Sign Attending Co-Sign The patient was seen and interviewed as well as examined at the bedside. The chart was reviewed. The case was discussed. Agree with the plan of care. MARSHA NEAL APRN Jun 18, 2018 10:50 IZA ALBERTS MD Jun 18, 2018 12:16
[2018-06-18 11:00] VITALS: BP 98/49
[2018-06-18] MEDS ORDERED: ERTAPENEM 1GM IVPB (GENERIC) 50 ML IV ONE (13:00)
[2018-06-18] MEDS ORDERED: Nicotine 21MG TD (13:26)
[2018-06-18] MEDS ORDERED: NITR100C62 PO (13:26)
[2018-06-18] MEDS ORDERED: LACT1CAP19 PO (13:26)
--- NOTE | 2018-06-18 13:37 | PDOC3 ---
Discharge Summary [facility] Date of Admission: Jun 14, 2018 Discharge Date: Jun 18, 2018 Admitting Diagnosis SIRS from resistant gram negative jose UTI Final Diagnosis SIRS from resistant gram negative jose UTI CONSULTS Grisel Procedures none Brief Hospital Course Ms. Moreno is a 38 old who presented with: resistant E.coli UTI with SIRS suseptible only to IV antibiotics which she was placed on Meropenem recent lap hyst with bladder injury - no abscess per imaging prolonged placement of intravaginal post op packing hx of C. diff - on lactobacillus, no diarrhea hx of SVT - atenolol is home med Patient History: FH: alcoholism 33 FATHER Disposition home CONDITION AT DISCHARGE: Improved, Stable Diet regular Scheduled Atenolol (Atenolol), 25 MG PO DAILYWSUP, (Reported) Clindamycin Hcl (Clindamycin Hcl), 300 MG PO QID Dexlansoprazole (Dexilant), 1 CAP PO DAILY, (Reported) Dextroamphetamine/Amphetamine (Adderall Xr 10 Mg Capsule), 1 CAP PO DAILYWBKFT, (Reported) Hydrochlorothiazide (Hydrochlorothiazide Tablet), 25 MG PO DAILYWSUP, (Reported) Hydrocodone/Apap 5-325 ([place] 5-325 Tablet), 1-2 TAB PO Q4-6HRS Scheduled PRN Albuterol Sulfate (Proair Hfa Inhaler), 2 PUFF INH PRN Q6HRS PRN for SHORTNESS OF BREATH, (Reported) Docusate Sodium (Colace), 100 MG PO PRN BID PRN for CONSTIPATION 1ST CHOICE Hydrocodone/Apap 5-325 ([place] 5-325 Tablet), 1-2 EACH PO PRN Q6HRS PRN for SEVERE PAIN Ibuprofen (Ibuprofen), 800 MG PO PRN Q8HRS PRN for INFLAMMATION Ondansetron (Zofran Odt), 1 TAB SL Q8HRS PRN for NAUSEA/VOMITING Follow Up 1-2 weeks Patient Instructions finish Macrodantin Rx Jared SINGER MD Jun 18, 2018 13:37
== END 2018-06-18 14:15 | disposition home or self-care (01) | DRG 872 ==
LOC: 6 SOUTH 17:58
PROVIDERS: ADMIT Family Medicine; ATTEND Family Medicine
DX: A41.9 Sepsis, unspecified organism (principal); N39.0 Urinary tract infection, site not specified; I47.1 Supraventricular tachycardia; Z90.710 Acquired absence of both cervix and uterus; I10 Essential (primary) hypertension; F41.9 Anxiety disorder, unspecified; Z82.49 Family history of ischemic heart disease and other diseases of the circulatory system; B96.20 Unspecified Escherichia coli [E. coli] as the cause of diseases classified elsewhere; Z16.24 Resistance to multiple antibiotics; R32 Unspecified urinary incontinence; B96.89 Other specified bacterial agents as the cause of diseases classified elsewhere
CPT/HCPCS: 36415; 74170; 80048; 80053; 85025; 87086; 94760; J1335; J2185; Q9967

== ENCOUNTER 2018-08-10 14:06 | Emergency (ER) | payer MEDICARE, OTHER ==
[~2018-08-10] VITALS: Ht 170.2 cm; Wt 108.9 kg
[~2018-08-10 14:06] MED LIST changes: +ALBU2.5V8 INH; +HYDR-3164 PO; -HYDR-971 PO; +LACT1CAP19 PO; +NITR100C62 PO; +Nicotine 21MG TD; -OXYC-323 PO; +OXYC1TAB15 PO; -PROAIR HFA8.5 GM INH
[2018-08-10 15:03] LABS: BILIRUBIN,URINE NEGATIVE (NEG); CLARITY,URINE CLOUDY; COLOR,URINE YELLOW; NITRITE,URINE NEGATIVE (NEG); PH,URINE 5.5; PROTEIN,URINE NEGATIVE (NEG-TRACE); UROBILINOGEN,URINE 0.2 mg/dL (0.2 mg/dL)
[2018-08-10 15:25] LABS: BACTERIA,URINE MODERATE /HPF (0-FEW); RBC,URINE 0 /HPF (0-2); SQUAMOUS EPITHELIAL CELL,UR OCC /LPF
--- NOTE | 2018-08-10 15:26 | PHYS DOC ---
Past Medical History Past Medical History: Anxiety, Hepatitis, Kidney Infection, Other Additional Past Medical Histor: TACHYCARDIA Past Surgical History: , Hysterectomy, Tubal ligation Additional Past Surgical Histo: RIGHT OVARY MASS REMOVED Alcohol Use: None Drug Use: Marijuana Adult General Chief Complaint Chief Complaint: FLANK PAIN [place] [employer] HPI Patient is a 38 year old female with history of anxiety, recent hysterectomy done laparoscopically Dr. Gibbs 05/26/2018 with accidental injury to the bladder who presents today complaining of 10 out of 10 left flank pain for 3 days. Patient describes the pain as sharp, she states the pain radiates throughout her left upper and lower back. Denies any nausea or vomiting. She states she's had a fever intermittently for 3 days. She states she was admitted in the hospital a couple weeks ago for Escherichia coli resistant urine and had to be on IV antibiotics. She states she believes the infection has returned. Denies any dysuria. Denies any hematuria. Review of Systems Review of Systems Constitutional: Denies fever or chills [] Eyes: Denies change in visual acuity, redness, or eye pain [] HENT: Denies nasal congestion or sore throat [] Respiratory: Denies cough or shortness of breath [] Cardiovascular: No additional information not addressed in HPI [] GI: Denies abdominal pain, nausea, vomiting, bloody stools or diarrhea [] : Reports left flank pain. Denies dysuria or hematuria [] Musculoskeletal: Denies back pain or joint pain [] Integument: Denies rash or skin lesions [] Neurologic: Denies headache, focal weakness or sensory changes [] All other systems were reviewed and found to be within normal limits, except as documented in this note. Current Medications Current Medications Current Medications Medications (Trade) Dose Ordered Sig/[facility] Start Time Stop Time Status Last Admin Dose Admin Fentanyl Citrate (Fentanyl 2ml Vial) 50 mcg 1X ONCE 08/10/18 15:45 08/10/18 15:46 DC 08/10/18 15:54 50 MCG Ondansetron HCl (Zofran) 4 mg 1X ONCE 08/10/18 15:44 08/10/18 15:45 DC 08/10/18 15:53 4 MG Sodium Chloride 1,000 ml @ 1,000 mls/hr 1X ONCE 08/10/18 15:30 08/10/18 16:29 DC 08/10/18 15:53 1,000 MLS/HR Allergies Allergies Allergies Coded Allergies Type Severity Reaction Last Updated Verified Penicillins Allergy Intermediate Rash 06/04/16 Yes erythromycin base Allergy Intermediate 06/04/16 Yes hydromorphone Allergy Intermediate Nausea and Vomiting 06/04/16 Yes propoxyphene Allergy Intermediate Nausea and Vomiting 06/04/16 Yes Physical Exam Physical Exam Constitutional: Well developed, well nourished, no acute distress, non-toxic appearance. [] HENT: Normocephalic, atraumatic, bilateral external ears normal, oropharynx moist, no oral exudates, nose normal. [] Eyes: PERRLA, EOMI, conjunctiva normal, no discharge. [] Neck: Normal range of motion, no tenderness, supple, no stridor. [] Cardiovascular:Heart rate regular rhythm, no murmur [] Lungs & Thorax: Bilateral breath sounds clear to auscultation [] Abdomen: Bowel sounds normal, soft, no tenderness, no masses, no pulsatile masses. [] Skin: Warm, dry, no erythema, no rash. [] Back: No tenderness, moderate left CVA tenderness. [] Extremities: No tenderness, no cyanosis, no clubbing, ROM intact, no edema. [] Neurologic: Alert and oriented X 3, normal motor function, normal sensory function, no focal deficits noted. [] Psychologic: Affect normal, judgement normal, mood normal. [] Current Patient Data Vital Signs Vital Signs Date Time Temp Pulse Resp B/P (MAP) Pulse Ox O2 Delivery O2 Flow Rate FiO2 08/10/18 16:15 76 16 128/72 (90) 99 Room Air 08/10/18 14:54 98.1 98.1 Lab Values Laboratory Tests Test 08/10/18 14:36 08/10/18 14:42 08/10/18 15:29 08/10/18 15:50 Urine Color Yellow Urine Clarity Cloudy Urine pH 5.5 Urine Specific [place] 1.015 Urine Protein Negative mg/dL (NEG-TRACE) Urine Glucose (UA) Negative mg/dL (NEG) Urine Ketones (Stick) Negative mg/dL (NEG) Urine Blood Negative (NEG) Urine Nitrite Negative (NEG) Urine Bilirubin Negative (NEG) Urine Urobilinogen Dipstick 0.2 mg/dL (0.2 mg/dL) Urine Leukocyte Esterase Negative (NEG) Urine RBC 0 /HPF (0-2) Urine WBC 5-10 /HPF (0-4) Urine Squamous Epithelial Cells Occ /LPF Urine Bacteria Moderate /HPF (0-FEW) Urine Mucus Mod /LPF POC Urine HCG, Qualitative Hcg negative (Negative) White Blood Count 10.7 x10^3/uL (4.0-11.0) Red Blood Count 4.66 x10^6/uL (3.50-5.40) Hemoglobin 12.5 g/dL (12.0-15.5) Hematocrit 37.2 % (36.0-47.0) Mean Corpuscular Volume 80 fL (79-100) Mean Corpuscular Hemoglobin 27 pg (25-35) Mean Corpuscular Hemoglobin Concent 34 g/dL (31-37) Red Cell Distribution Width 16.6 % (11.5-14.5) H Platelet Count 248 x10^3/uL (140-400) Neutrophils (%) (Auto) 65 % (31-73) Lymphocytes (%) (Auto) 27 % (24-48) Monocytes (%) (Auto) 6 % (0-9) Eosinophils (%) (Auto) 1 % (0-3) Basophils (%) (Auto) 1 % (0-3) Neutrophils # (Auto) 7.0 x10^3uL (1.8-7.7) Lymphocytes # (Auto) 2.9 x10^3/uL (1.0-4.8) Monocytes # (Auto) 0.6 x10^3/uL (0.0-1.1) Eosinophils # (Auto) 0.1 x10^3/uL (0.0-0.7) Basophils # (Auto) 0.1 x10^3/uL (0.0-0.2) Sodium Level 141 mmol/L (136-145) Potassium Level 3.9 mmol/L (3.5-5.1) Chloride Level 105 mmol/L (98-107) Carbon Dioxide Level 26 mmol/L (21-32) Anion Gap 10 (6-14) Blood Urea Nitrogen 11 mg/dL (7-20) Creatinine 0.8 mg/dL (0.6-1.0) Estimated GFR (Cockcroft-Gault) 79.9 BUN/Creatinine Ratio 14 (6-20) Glucose Level 86 mg/dL (70-99) Calcium Level 8.5 mg/dL (8.5-10.1) Total Bilirubin 0.2 mg/dL (0.2-1.0) Aspartate Amino Transferase (AST) 20 U/L (15-37) Alanine Aminotransferase (ALT) 19 U/L (14-59) Alkaline Phosphatase 97 U/L (46-116) Total Protein 6.8 g/dL (6.4-8.2) Albumin 3.2 g/dL (3.4-5.0) L Albumin/Globulin Ratio 0.9 (1.0-1.7) L Lipase 88 U/L (73-393) Lactic Acid Level 1.2 mmol/L (0.4-2.0) Laboratory Tests 08/10/18 15:29 Laboratory Tests 08/10/18 15:29 EKG EKG [] Radiology/Procedures Radiology/Procedures [] Course & Med Decision Making Course & Med Decision Making Pertinent Labs and Imaging studies reviewed. (See chart for details) This is a 38-year-old female patient presenting to the ED today with 10 out of 10 left flank pain and a fever intermittently for 3 days. Patient is afebrile on arrival to the ED. See history of present illness, she had a hysterectomy done May 26, 2018 and sustained bladder injury. Has been battling Escherichia coli resistant urine infection. CBC with a normal WBC, CMP would not acute findings, urine analysis is noted for bacteria, no nitrites, no leukocytes, we will culture this urine and wait for the results before putting patient on any antibiotics. CT of the abdomen and pelvic was negative for any acute findings. Results were discussed with Dr. Farias on-call for Dr. Murillo. We both agreed patient can be discharged to home and follow-up as an outpatient. Patient was agreeable to the plan. Staff Physician Addendum: I was working in the ER during the course of this patient's visit. I was available for consultation as needed, but I was not directly involved in the care of this patient. Dragon Disclaimer Dragon Disclaimer This electronic medical record was generated, in whole or in part, using a voice recognition dictation system. Departure Departure Impression: Primary Impression: Flank pain Disposition: HOME, SELF-CARE Condition: STABLE Referrals: Jared MURILLO MD (PCP) Call his office tomorrow and set up a follow-up appointment Patient Instructions: Flank Pain, [id number] Additional Instructions: You were evaluated in the emergency room for flank pain. Please contact Dr. Murillo 's office tomorrow and set up an outpatient follow-up appointment. Come back to the ED at any point symptoms worsen. MEGAN HU APRN Aug 10, 2018 15:26 MARGOT CEDENO MD Aug 11, 2018 12:36
[2018-08-10] MEDS ORDERED: IV NORMAL SALINE 1000ML BAG 1,000 ML IV ONE (15:30)
[2018-08-10 15:38] LABS: BASO # 0.1 x10^3/uL (0.0-0.2); BASO % 1 % (0-3); EOS # 0.1 x10^3/uL (0.0-0.7); EOS % 1 % (0-3); HEMATOCRIT 37.2 % (36.0-47.0); HEMOGLOBIN 12.5 g/dL (12.0-15.5); LYMPH # 2.9 x10^3/uL (1.0-4.8); LYMPH % 27 % (24-48); MEAN CORPUSCULAR HEMOGLOBIN 27 pg (25-35); MEAN CORPUSCULAR HGB CONC 34 g/dL (31-37); MEAN CORPUSCULAR VOLUME 80 fL (79-100); MONO # 0.6 x10^3/uL (0.0-1.1); MONO % 6 % (0-9); NEUT % 65 % (31-73); PLATELET COUNT 248 x10^3/uL (140-400); RED BLOOD COUNT 4.66 x10^6/uL (3.50-5.40); RED CELL DISTRIBUTION WIDTH 16.6 % (11.5-14.5); WHITE BLOOD COUNT 10.7 x10^3/uL (4.0-11.0)
[2018-08-10] MEDS ORDERED: ONDANSETRON PF 4 MG/2 ML VIAL. IV ONE (15:44)
[2018-08-10] MEDS ORDERED: fentaNYL PF VIAL 100 MCG/2 ML VIAL IV ONE (15:45)
[2018-08-10 15:59] LABS: CALCIUM 8.5 mg/dL (8.5-10.1); CREATININE 0.8 mg/dL (0.6-1.0); GFR 79.9; POTASSIUM 3.9 mmol/L (3.5-5.1)
--- NOTE | 2018-08-10 16:05 | RAD ---
Examination: CT ABDOMEN PELVIS WO CONTRAST History: left side flank pain, hx of bladder trauma during sx
prior sent Comparison/Correlation: 10/06/2017 CT abdomen and pelvis without contrast, 06/17/2018 CT pelvis with contrast Findings: Axial images of the abdomen and pelvis were obtained without contrast. Sagittal and coronal reformatted images were provided. Visualized lung bases are clear. Low-attenuation lesion involving the left hepatic lobe near the intersegmental fissure is present. Spleen, pancreas, adrenal glands, and kidneys are unremarkable. No radiopaque collecting system calculi. Urinary bladder is unremarkable. Urinary bladder is mostly decompressed. Appendix is normal. Moderate quantity of stool in the colon is present. No bowel obstruction. No extraluminal gas. No ascites or pelvic free fluid. No enlarged abdominal or pelvic lymph nodes. Left adnexal follicles are small in size. Hysterectomy noted. Impression: No inflammatory findings. No obstruction. No radiopaque collecting system calculi. Electronically signed by: Ha Ray MD (08/10/2018 4:01 PM) [id number]
[2018-08-10 16:12] LABS: ALBUMIN 3.2 g/dL (3.4-5.0); ALBUMIN/GLOBULIN RATIO 0.9 (1.0-1.7); TOTAL BILIRUBIN 0.2 mg/dL (0.2-1.0); TOTAL PROTEIN 6.8 g/dL (6.4-8.2)
[2018-08-10 16:15] VITALS: BP 128/72
== END 2018-08-10 17:00 | disposition home or self-care (01) ==
LOC: ER 14:06
DX: G89.18 Other acute postprocedural pain (principal); R10.12 Left upper quadrant pain; M54.5 Low back pain; M54.6 Pain in thoracic spine; R50.9 Fever, unspecified; Z90.710 Acquired absence of both cervix and uterus; Z98.51 Tubal ligation status; Z88.0 Allergy status to penicillin; Z88.1 Allergy status to other antibiotic agents; Z88.5 Allergy status to narcotic agent; Z88.8 Allergy status to other drugs, medicaments and biological substances
CPT/HCPCS: 36415; 74176; 80053; 81001; 81025; 83605; 83690; 85025; 87040; 87086; 96374; 96375; 99284; J2405; J3010; J7030

== ENCOUNTER → 2019-05-04 | Outpatient (CLI) | payer MEDICARE, OTHER ==
[~2019-05-04] MED LIST changes: +REGADENOSON 0.4 MG/5 ML DISP.SYRIN. IV ONE
--- NOTE | 2019-05-05 11:31 | RAD ---
MR#: [id number] Date of Study: 05/05/2019 Ordering Physician: JARON DOAN Referring Physician: SAM DELAROSA Tech: ALEXANDRE Pimentel APPROVED REPORT Test Type: Pharmacological Stress Nurse/Tech: Jesus Mujica RN Test Indications: Afib Cardiac History: Afib, Tachycardia, See EMR Medications: ASA, See EMR Medical History: Asthma, Smoker for 29 yrs, See EMR Resting ECG: SR Resting Heart Rate: 63 bpm Resting Blood Pressure: 115/67mmHg Pretest Chest Pain: No chest pain Nurse/Tech Notes Lungs CTA, Heart tones regular. Consent: The procedure was explained to the patient in lay terms. Informed consent was witnessed. Timothy eout was entered into [employer]. History and Stress Test performed by ALEXANDRE Pimentel Pharm. Details Pharmacologic stress testing was performed using 0.4mg per 5ml of regadenoson given intravenously ove r 7-10 seconds. Stress Symptoms No chest pain or symptoms. POST EXERCISE Reason for Termination: Infusion complete Max HR: 116 bpm Max Blood Pressure: 156/71mmHg Blood Pressure response to exercise: Normal blood pressure response during stress. Heart Rate response to exercise: WNL Chest Pain: No. Arrhythmia: No. ST Change: No. INTERPRETATION Stress EKG Conclusion: Baseline EKG showed sinus rhythm. Non-diagnostic changes at peak stress. No arrhythmias. Imaging Protocol IMAGE PROTOCOL: Rest Tc-99m/stress Tc-99m 2 days Rest: Stress: Viability: Radiopharm.Tc99m PqknvassyLp83j Sestamibi Mcmg55qSt 33mCi Duration 13min. 13min. Img Date 05/04/2019 05/05/2019 Inj-Img Ucif37zwl. 60min. Rest Admin Site:IV - Left AntecubitalAdministrator:ALEXANDRE Pimentel Stress Admin Site: IV - Right AntecubitalAdministrator: ALEXANDRE Pimentel STRESS DATA End Diast. Vol.95.0mlAv. Heart Rate71.0bpm End Syst. Vol.26.0mlCO Index BSA0.0L/min Myocardial Bhxf825.0gEject. Dlurjhsn72.0% Stress Rates Pk. Fill Rate2.75EDV/secLVtime Pk. Fill 152.47msec Pk. Empty Rate2.90ESV/secLVtime Pk. Mmytk805.52msec /3 Pk. Fill1.64EDV/sec Stress Scores Regional WT0.00Summed WT1.00 Regional WM0.00Summed WM4.00 Study quality was good. Left Ventricular size was Normal at Rest and Stress. Lung uptake was . Left Ventricular ejection fraction is 73%. The rest and stress images show normal perfusion, normal contraction and thickening. LV Perf. Quant 17 Seg. SSS2.00 17 Seg. SRS0.00 17 Seg. SDS2.00 Stress Defect Extent (% LAD)0.00Rest Defect Extent (% LAD)0.00Rev. Defect Extent (% LAD)0.00 Stress Defect Extent (% LCX) 13.80Rest Defect Extent (% LCX)0.00Rev. Defect Extent (% LCX)11.30 Stress Defect Extent (% RCA)0.00Rest Defect Extent (% RCA)0.00Rev. Defect Extent (% RCA)0.00 Stress Defect Extent (% KIN)5.00Rest Defect Extent (% KIN)0.00Rev. Defect Extent (% KIN)4.60 Conclusion 1. Regadenoson cardioisotope stress test did not show any evidence of ischemia or infarct. 2. Normal left ventricular systolic function with ejection fraction calculated at 73%. 3. Low risk for cardiac events. Signed by : Jaron Doan, Electronically Approved : 05/05/2019 11:30:41
== END | disposition home or self-care (01) ==
LOC: NM 08:05
PROVIDERS: ATTEND Internal Medicine Cardiovascular Disease
DX: I48.92 Unspecified atrial flutter (principal); J45.909 Unspecified asthma, uncomplicated; F17.200 Nicotine dependence, unspecified, uncomplicated
CPT/HCPCS: 78452; A9500; 93017; J2785

== ENCOUNTER → 2019-05-05 | Outpatient (CLI) | payer MEDICARE, OTHER ==
[~2019-05-05] MED LIST changes: -REGADENOSON 0.4 MG/5 ML DISP.SYRIN. IV ONE
--- NOTE | 2019-05-05 09:36 | CARD ---
MR#: [id number] Date of Study: 05/05/2019 Ordering Physician: JARON DOAN, Referring Physician: JARON DOAN Tech: Vani Hernandez RDCS APPROVED REPORT EXAM: Two-dimensional and M-mode echocardiogram with Doppler and color Doppler. Other Information Quality : Good INDICATION History of Atrial Flutter 2D DIMENSIONS RVDd2.7 (2.9-3.5cm)Left Atrium(2D)3.6 (1.6-4.0cm) IVSd0.5 (0.7-1.1cm)Aortic Root(2D)2.8 (2.0-3.7cm) LVDd5.7 (3.9-5.9cm)LVOT Diameter2.0 (1.8-2.4cm) PWd0.6 (0.7-1.1cm)LVDs4.1 (2.5-4.0cm) FS (%) 26.8 %SV81.4 ml LVEF(%)55.0 (>50%) Aortic Valve AoV Peak Vern.116.1cm/sAoV VTI26.6cm AO Peak GR.5.4mmHgLVOT Peak Vern.94.8cm/s LVOT VTI 21.69cmAO Mean GR.3mmHg CHANA (VMAX)2.92cd3SJS (VTI)2.59cm2 Mitral Valve MV E Ztltijji52.1cm/sMV DECEL GGZS048zz MV A Foglrfbl63.4cm/sMV FQA60hm E/A Ratio1.5MVA (PHT)4.04cm2 TDI E/Lateral E'7.9E/Medial E'13.6 Pulmonary Vein S1 Xkpbnsdj97.4cm/sD2 Opazyznp40.1cm/s LEFT VENTRICLE The left ventricle is normal size. There is normal left ventricular wall thickness. The left ventricu lar systolic function is normal. The Ejection Fraction is 55-60%. There is normal LV segmental wall m otion. The left ventricular diastolic function and filling is normal for age. RIGHT VENTRICLE The right ventricle is normal size. The right ventricular systolic function is normal. ATRIA The left atrium size is normal. The right atrium size is normal. The interatrial septum is intact wit h no evidence for an atrial septal defect or patent foramen ovale as noted on 2-D or Doppler imaging. AORTIC VALVE The aortic valve is calcified but opens well. Doppler and Color Flow revealed no significant aortic r egurgitation. There is no significant aortic valvular stenosis. MITRAL VALVE The mitral valve is normal in structure and function. There is no evidence of mitral valve prolapse. There is no mitral valve stenosis. Doppler and Color Flow revealed no mitral valve regurgitation note d. TRICUSPID VALVE The tricuspid valve is normal in structure and function. Doppler and Color Flow revealed no tricuspid valve regurgitation noted. There is no tricuspid valve stenosis. PULMONIC VALVE The pulmonic valve is not well visualized. Doppler and Color Flow revealed trace pulmonic valvular re gurgitation. There is no pulmonic valvular stenosis. GREAT VESSELS The aortic root is normal in size. The ascending aorta is normal in size. The IVC is normal in size a nd collapses >50% with inspiration. PERICARDIAL EFFUSION There is no evidence of significant pericardial effusion. Critical Notification Critical Value: No <Conclusion> The left ventricular systolic function is normal. The Ejection Fraction is 55-60%. There is normal LV segmental wall motion. There is no evidence of significant pericardial effusion. Signed by : Jaron Doan, Electronically Approved : 05/05/2019 09:36:37
== END | disposition home or self-care (01) ==
LOC: ECHO 08:32
PROVIDERS: ATTEND Internal Medicine Cardiovascular Disease
DX: I35.8 Other nonrheumatic aortic valve disorders (principal); I48.92 Unspecified atrial flutter
CPT/HCPCS: 93306

== ENCOUNTER → 2020-06-17 | Outpatient (CLI) | payer MEDICARE, OTHER ==
[~2020-06-17] MED LIST changes: -POTA10TA12 PO; +POTASSIUM CHLO10 ME1 PO
--- NOTE | 2020-06-18 16:16 | CARD ---
MR#: [id number] Date of Study: 06/17/2020 Ordering Physician: JARON DOAN, Referring Physician: JARON DOAN Tech: Vani Hernandez RDCS APPROVED REPORT EXAM: Two-dimensional and M-mode echocardiogram with Doppler and color Doppler. Other Information Quality : Fair INDICATION Atrial Flutter 2D DIMENSIONS Left Atrium(2D)2.9 (1.6-4.0cm)IVSd0.9 (0.7-1.1cm) Aortic Root(2D)2.7 (2.0-3.7cm)LVDd5.3 (3.9-5.9cm) LVOT Diameter2.1 (1.8-2.4cm)PWd0.9 (0.7-1.1cm) LVDs3.2 (2.5-4.0cm)FS (%) 38.5 % SV91.3 ml Aortic Valve AoV Peak Vern.145.3cm/sAoV VTI30.7cm AO Peak GR.8.4mmHgLVOT Peak Vern.96.6cm/s AO Mean GR.5mmHgAVA (VMAX)2.26cm2 CHANA (VTI)2.10cm2 Mitral Valve MV E Meqwwxwf274.9cm/sMV DECEL YMBE946mf MV A Mjpcdcew14.2cm/sE/A Ratio1.3 Pulmonary Vein S1 Qxosiugj81.5cm/sD2 Lughvteq38.3cm/s LEFT VENTRICLE The left ventricle is normal size. There is normal left ventricular wall thickness. The left ventricu lar systolic function is normal and the ejection fraction is within normal range. The Ejection Fracti on is 55-60%. There is normal LV segmental wall motion. The left ventricular diastolic function and f illing is normal for age. RIGHT VENTRICLE The right ventricle is normal size. The right ventricular systolic function is normal. ATRIA The left atrium size is normal. The right atrium size is normal. The interatrial septum is intact wit h no evidence for an atrial septal defect or patent foramen ovale as noted on 2-D or Doppler imaging. AORTIC VALVE The aortic valve is normal in structure and function. Doppler and Color Flow revealed no significant aortic regurgitation. There is no significant aortic valvular stenosis. MITRAL VALVE The mitral valve is normal in structure and function. There is no evidence of mitral valve prolapse. There is no mitral valve stenosis. Doppler and Color Flow revealed no mitral valve regurgitation note d. TRICUSPID VALVE The tricuspid valve is normal in structure and function. Doppler and Color Flow revealed no tricuspid valve regurgitation noted. There is no tricuspid valve stenosis. PULMONIC VALVE The pulmonic valve is not well visualized. Doppler and Color Flow revealed no pulmonic valvular regur gitation. There is no pulmonic valvular stenosis. GREAT VESSELS The aortic root is normal in size. The ascending aorta is not well seen. The IVC is normal in size an d collapses >50% with inspiration. PERICARDIAL EFFUSION There is no evidence of significant pericardial effusion. Critical Notification Critical Value: No <Conclusion> The left ventricle is normal size. The left ventricular systolic function is normal and the ejection fraction is within normal range. The Ejection Fraction is 55-60%. Doppler and Color Flow revealed no significant aortic regurgitation. There is no significant aortic valvular stenosis. Doppler and Color Flow revealed no mitral valve regurgitation noted. Doppler and Color Flow revealed no tricuspid valve regurgitation noted. Signed by : Naresh Bustillo MD Electronically Approved : 06/18/2020 16:16:06
== END ==
LOC: ECHO 13:20
PROVIDERS: ATTEND Internal Medicine Cardiovascular Disease
DX: I48.92 Unspecified atrial flutter (principal)
CPT/HCPCS: 93306

== ENCOUNTER → 2021-07-02 | Outpatient (CLI) | payer MEDICARE, OTHER ==
[~2021-07-02] MED LIST changes: +CLIN-94 PO; -CLIN300C8 PO
--- NOTE | 2021-07-03 10:11 | CARD ---
MR#: [id number] Date of Study: 07/02/2021 Ordering Physician: JARON DOAN, Referring Physician: JARON DOAN, Tech: Steph Porter [facility] APPROVED REPORT EXAM: Two-dimensional and M-mode echocardiogram with Doppler and color Doppler. Other Information Quality : AverageHR: 71bpm INDICATION Atrial Flutter RISK FACTORS Smoking Asthma 2D DIMENSIONS RVDd3.3 (2.9-3.5cm)Left Atrium(2D)3.1 (1.6-4.0cm) IVSd1.0 (0.7-1.1cm)Aortic Root(2D)3.0 (2.0-3.7cm) LVDd5.3 (3.9-5.9cm)LVOT Diameter2.0 (1.8-2.4cm) PWd0.9 (0.7-1.1cm)LVDs3.6 (2.5-4.0cm) FS (%) 31.2 %SV77.9 ml LVEF(%)58.6 (>50%) Aortic Valve AoV Peak Vern.135.2cm/sAoV VTI28.6cm AO Peak GR.7.3mmHgLVOT Peak Vern.93.1cm/s LVOT VTI 20.75cmAO Mean GR.4mmHg CHANA (VMAX)1.88bz2CDR (VTI)2.36cm2 Mitral Valve MV E Quaepcvf30.9cm/sMV DECEL EOFB276vz MV A Jxwngngy42.4cm/sMV E Mean Gr.1mmHg MV EVD92zsK/A Ratio1.5 MVA (PHT)3.18cm2 TDI E/Lateral E'5.5E/Medial E'7.0 Pulmonary Valve PV Peak Eqtcplwd96.6cm/sPV Peak Grad.4mmHg Tricuspid Valve TR P. Mhezfhly088ec/sRAP XQSMIHYN9opEj TR Peak Gr.00rxIwDXAQ62mcBe Pulmonary Vein S1 Pqqewewm72.8cm/sD2 Dnekqdal43.3cm/s PVa hstpdmeh819rmwp LEFT VENTRICLE The left ventricle is normal size. There is normal left ventricular wall thickness. The left ventricu lar systolic function is normal and the ejection fraction is within normal range. The Ejection Fracti on is 50-55%. There is normal LV segmental wall motion. The left ventricular diastolic function and f illing is normal for age. RIGHT VENTRICLE The right ventricle is normal size. There is normal right ventricular wall thickness. The right ventr icular systolic function is normal. ATRIA The left atrium size is normal. The right atrium size is normal. The interatrial septum is intact wit h no evidence for an atrial septal defect or patent foramen ovale as noted on 2-D or Doppler imaging. AORTIC VALVE The aortic valve is normal in structure and function. Doppler and Color Flow revealed no significant aortic regurgitation. There is no significant aortic valvular stenosis. MITRAL VALVE The mitral valve is normal in structure and function. There is no evidence of mitral valve prolapse. There is no mitral valve stenosis. Doppler and Color-flow revealed trace mitral regurgitation. TRICUSPID VALVE The tricuspid valve is normal in structure and function. Doppler and Color Flow revealed trace tricus pid regurgitation with an estimated PAP of 22 mmHg. There is no tricuspid valve stenosis. PULMONIC VALVE The pulmonic valve is not well visualized. Doppler and Color Flow revealed trace pulmonic valvular re gurgitation. There is no pulmonic valvular stenosis. GREAT VESSELS The aortic root is normal in size. The IVC is normal in size and collapses >50% with inspiration. PERICARDIAL EFFUSION There is no evidence of significant pericardial effusion. Critical Notification Critical Value: No <Conclusion> The left ventricular systolic function is normal and the ejection fraction is within normal range. Th e Ejection Fraction is 50-55%. There is normal LV segmental wall motion. Signed by : Elmer Prado, Electronically Approved : 07/03/2021 10:10:49
== END ==
LOC: ECHO 11:15
PROVIDERS: ATTEND Internal Medicine Cardiovascular Disease
DX: I48.92 Unspecified atrial flutter (principal)
CPT/HCPCS: 93306